=== PATIENT | female | born 1970 | race Caucasian/White ===

== ENCOUNTER → 2017-02-05 | Outpatient (CLI) | payer OTHER | END | disposition home or self-care (01) | LOC: LABWHC1 09:38 | PROVIDERS: ATTEND Psychiatry & Neurology Pain Medicine | DX: G35 Multiple sclerosis (principal); Z79.899 Other long term (current) drug therapy | CPT/HCPCS: 36415; 82306; 82607; 84207; 84439; 84443; 84481 ==

== ENCOUNTER → 2017-03-05 | Outpatient (CLI) | payer OTHER ==
[2017-03-05 11:26] LABS: Basophils % (A) 0 %; CH 31.9; CHCM 34.6; Eosinophils # (A) 0.1 k/uL (0-0.7); Eosinophils % (A) 3 %; HCT 38.3 % (34.0-46.0); HDW 2.65; HGB 13.1 gm/dL (11.4-16.0); Luc # (Auto) 0.15; Luc % (Auto) 4; Lymphocytes # (A) 0.3 k/uL (1.0-4.8); Lymphocytes % (A) 8 %; MCH 31.6 pg (25.0-35.0); MCHC 34.1 g/dL (31.0-37.0); MCV 92.6 fL (80.0-100.0); Mean Platelet Volume 10.1; Monocytes # (A) 0.4 k/uL (0-1.0); Monocytes % (A) 10 %; Neutrophils # (A) 3.1 k/uL (1.3-7.7); Neutrophils % (A) 76 %; RBC 4.13 m/uL (3.80-5.40); WBC (Perox) 4.31
[2017-03-05 11:59] LABS: ALT 47 U/L (9-52); AST 29 U/L (14-36); Alkaline Phosphatase 60 U/L (38-126); Anion Gap 8 mmol/L; Blood Urea Nitrogen 8 mg/dL (7-17); Calcium 9.6 mg/dL (8.4-10.2); Carbon Dioxide 28 mmol/L (22-30); Chloride 105 mmol/L (98-107); Glucose 85 mg/dL (74-99); Non-African American GFR(MDRD) >60 (>60 ml/min/1.73 sqM); Potassium 4.4 mmol/L (3.5-5.1); Sodium 141 mmol/L (137-145); Total Bilirubin 0.9 mg/dL (0.2-1.3); Total Protein 6.5 g/dL (6.3-8.2)
== END | disposition home or self-care (01) ==
LOC: LABWHC1 10:52
PROVIDERS: ATTEND Psychiatry & Neurology Pain Medicine
DX: G35 Multiple sclerosis (principal); Z79.899 Other long term (current) drug therapy
CPT/HCPCS: 36415; 80053; 85025

== ENCOUNTER → 2018-01-27 | Outpatient (CLI) | payer OTHER ==
[2018-01-27 11:12] LABS: ALT 42 U/L (9-52); AST 16 U/L (14-36); Albumin 4.1 g/dL (3.5-5.0); Alkaline Phosphatase 77 U/L (38-126); Anion Gap 11 mmol/L; Blood Urea Nitrogen 12 mg/dL (7-17); Carbon Dioxide 29 mmol/L (22-30); Chloride 102 mmol/L (98-107); Glucose 82 mg/dL (74-99); Sodium 142 mmol/L (137-145); Total Bilirubin 0.8 mg/dL (0.2-1.3); Total Protein 6.8 g/dL (6.3-8.2)
[2018-01-27 11:23] LABS: HCT 40.2 % (34.0-46.0); HGB 14.5 gm/dL (11.4-16.0); MCH 31.7 pg (25.0-35.0); MCHC 36.2 g/dL (31.0-37.0); MCV 87.6 fL (80.0-100.0); Mean Platelet Volume 10.2; Platelet Count 230 k/uL (150-450); RBC 4.59 m/uL (3.80-5.40); RDW 12.5 % (11.5-15.5); WBC 5.6 k/uL (3.8-10.6)
[2018-01-27 11:29] LABS: T4, Free (Free Thyroxine) 1.03 ng/dL (0.78-2.19)
[2018-01-27 12:14] LABS: Lymphocytes # (M) 0.11 k/uL (1.0-4.8); Monocytes # (M) 0.11 k/uL (0-1.0); Neutrophils # (M) 5.38 k/uL (1.3-7.7); Neutrophils % (M) 96 %; Nucleated Red Blood Cells 0 /100 WBC (0-0); Total Cells Counted 100
[2018-01-27 12:15] LABS: Anisocytosis (M) Present
[2018-01-27 16:08] LABS: Folate, Serum 10.7 ng/mL; Vitamin D 25 Hydroxy 62.8 ng/mL (30.0-100.0)
[2018-01-27 17:12] LABS: HIV AB P24 Non-Reactive (Non-Reactive); HIV P24 AG Non-Reactive (Non-Reactive)
[2018-01-27 17:56] LABS: Hepatitis A Antibody IgM Non-Reactive (Non-Reactive); Hepatitis B Core IgM Non-Reactive (Non-Reactive)
[2018-01-27 20:57] LABS: Hemoglobin A1C 4.7 % (4.0-6.0)
[2018-01-28 10:21] LABS: Vitamin B1 48 ug/L (38-122)
[2018-01-28 14:49] LABS: Vitamin B6 4 ug/L (5-50)
== END | disposition home or self-care (01) ==
LOC: LABWHC1 10:02
PROVIDERS: ATTEND Psychiatry & Neurology Neurology
DX: G35 Multiple sclerosis (principal)
CPT/HCPCS: 36415; 80053; 80074; 82306; 82607; 82746; 83036; 84207; 84425; 84439; 84443; 84481; 84591; 85025; 87390

== ENCOUNTER → 2018-02-03 | Outpatient (CLI) | payer OTHER ==
[2018-02-03 17:01] LABS: Anti-DNA, DS unit <1.0 IU/mL; Cyclic Citrullinated Pep IgG NEGATIVE (NEGATIVE); DNA Double-Stranded NEGATIVE (NEGATIVE); Scleroderma SC-70 Ab <0.2 AI
[2018-02-04 01:21] LABS: RNP <0.2 AI
== END | disposition home or self-care (01) ==
LOC: LABWHC1 10:18
PROVIDERS: ATTEND Psychiatry & Neurology Pain Medicine
DX: M35.9 Systemic involvement of connective tissue, unspecified (principal)
CPT/HCPCS: 36415; 83516; 86038; 86200; 86225; 86235

== ENCOUNTER → 2018-02-18 | Outpatient (CLI) | payer OTHER | END | disposition home or self-care (01) | LOC: RADMRIMAIN 10:52 | PROVIDERS: ATTEND Psychiatry & Neurology Pain Medicine | DX: Z53.9 Procedure and treatment not carried out, unspecified reason (principal) ==

== ENCOUNTER → 2018-02-19 | Outpatient (CLI) | payer OTHER ==
--- NOTE | 2018-02-20 07:55 | MR ---
MRI CERVICAL SPINE: MRI THORACIC SPINE: CLINICAL HISTORY: Multiple sclerosis relapse with leg weakness TECHNIQUE: Multiplanar, multisequence imaging of the cervical and thoracic spine are performed withou t and with IV contrast, 7.5 cc of gadolinium was given intravenously. Demyelinating disease protocol. COMPARISON: MRI cervical spine October 21, 2014. MRI thoracic spine July 21, 2015. FINDINGS: C-SPINE: Sagittal images of the cervical spine show the craniocervical junction to remain within normal limits . The cervical and upper thoracic spinal cord remains normal in course, caliber, and signal. Verteb ral alignment is stable and satisfactory. The vertebral body heights are normal. There is redemonstr ation of mild to moderate disc space narrowing with posterior disc herniation C5-C6 level effacing an terior thecal sac. There is additional posterior disc herniation effacing anterior thecal sac at C6-C 7 level on sagittal images. The bone marrow signal intensity is within normal limits. No suspicious p ostcontrast enhancement is seen. Axial images show the C2-C3 and C3-C4 levels to appear within normal limits. Axial images at C4-C5 level shows small central disc protrusion mildly effacing anterior thecal sac o n axial image 30, bilateral neural foramina are patent. Axial images at C5-C6 level redemonstrated broad-based left paracentral disc protrusion effacing ante rolateral thecal sac and causing mild left greater than right bilateral neural foraminal narrowing. N o significant change from prior study is seen. Axial images at C6-C7 level shows central disc protrusion effacing anterior thecal sac, bilateral natalie ral foramina are patent. No significant change from prior. Axial images at C7-T1 level are felt to remain within normal limits. Questionable T2 hyperintense focus posterior left C4 level near axial image 33 is not significantly c hanged from prior. No definitive new areas of involvement are identified. IMPRESSION: Possible left posterior C4 T2 hyperintense lesion not significant change from prior. No n ew or enhancing lesions are seen. Multilevel degenerative changes redemonstrated most prominent C5-C6 level without significant change from prior. T-SPINE: FINDINGS: Spinal cord shows normal course, caliber, and signal as it courses the thoracic spine. Elaine tebral body heights and alignment are satisfactory. Disc space heights are fairly well-maintained. N o suspicious posterior disc herniations are seen. Bone marrow signal intensity is maintained. No susp icious enhancement is noted. Review of the axial images shows no significant spinal canal stenosis or neural foraminal narrowing a t any thoracic level. There is redemonstration of round 5 mm T1 and T2 hyperintense lesion favoring proteinaceous cyst left kidney posterior lateral aspect axial image 3 stable from prior. A few small simple appearing cysts redemonstrated scattered throughout the visualized liver. Visualized thorax and upper abdomen otherwi se are unremarkable. IMPRESSION: No evidence of demyelinating disease involvement in the thoracic spinal cord. No signific ant change from prior MRI.
== END | disposition home or self-care (01) ==
LOC: RADMRIMAIN 11:02
PROVIDERS: ATTEND Psychiatry & Neurology Neurology
DX: M47.812 Spondylosis without myelopathy or radiculopathy, cervical region (principal); G35 Multiple sclerosis; Z88.8 Allergy status to other drugs, medicaments and biological substances
CPT/HCPCS: 72156; 72157; A9581

== ENCOUNTER → 2018-03-04 | Outpatient (CLI) | payer OTHER ==
--- NOTE | 2018-03-04 20:57 | MR ---
EXAMINATION TYPE: MR brain wo/w con DATE OF EXAM: 03/04/2018 COMPARISON: 07/10/2016 HISTORY: MS, Left side weakness and numbness CONTRAST: Performed utilizing 7 mL intravenous Gadavist gadolinium contrast. TECHNIQUE: Multiplanar, multisequence imaging of the brain is performed on a 3.0 Ambreen magnet. Demye linating disease protocol with additional Sagittal Flair sequence is performed. Study is performed wi thin 24 hours of arrival to the hospital. FINDINGS: There is thinning of the corpus callosum. Multiple white matter plaques and ischemic areas are perpendicular to the corpus callosum which can be suggestive for although not diagnostic of multi ple sclerosis. T2 White Matter Lesions Present : Yes Approximate Number of Lesions: Multiple bilateral approaching confluent. Locations Identified : Pericallosal periventricular subcortical, callosal white matter change may be present. Cerebellar white matter changes are evident greater on the left. Size of Largest Lesion(s): 1. 1.1 x 1.2 x 1.8 cm. Location: Left centrum semiovale Sequence 501 Image 22 (axial) and Sequence 60 1 Image 15 (sagittal). This has enlarged from the prior measurements of 1.0 x 1.0 x 0.9 cm. 2. 0.7 x 0.7 x 0.5 cm. Location: Left proximal temporal lobe subcortical white matter Sequence 501 Image 14 (axial) and Sequence 601 Image 8 (sagittal). This previously measured 0.7 x 0.8 x 0.3 cm. Enhancing Lesion(s) Present: No Change from Prior: Similar distribution and appearance. Some focal lesions have increased in size suc h as the left cerebellum. Diffusion-weighted imaging is performed. No abnormal hyperintensity is present to suggest an acute i ntracranial infarct or acute ischemic change. Ventricles and sulci are prominent for the patient age. There are no abnormal extra-axial fluid collections. The craniocervical junction appears within norm al limits. The dural venous sinuses appear patent. No abnormal enhancement is present on post contrast images. . The visualized sinuses are clear. Visu alized orbits are unremarkable. IMPRESSION: 1. There appears to be subtle progression of extensive white matter changes suggestive for worsening multiple sclerosis plaques.
== END | disposition home or self-care (01) ==
LOC: RADMRIMAIN 11:34
PROVIDERS: ATTEND Psychiatry & Neurology Neurology
DX: G35 Multiple sclerosis (principal)
CPT/HCPCS: 70553; A9581

== ENCOUNTER → 2018-03-12 | Outpatient (CLI) | payer OTHER ==
[2018-03-12 17:45] LABS: Hepatitis B Core IgM Non-Reactive (Non-Reactive); Hepatitis B Surface AB- Quant 3.5 mIU/mL
== END | disposition home or self-care (01) ==
LOC: LABWHC1 10:05
PROVIDERS: ATTEND Psychiatry & Neurology Neurology
DX: G35 Multiple sclerosis (principal); Z51.81 Encounter for therapeutic drug level monitoring
CPT/HCPCS: 36415; 86704; 86705; 86706

== ENCOUNTER → 2018-04-15 | Outpatient (CLI) | payer OTHER ==
[2018-04-15 10:41] LABS: HCT 41.2 % (34.0-46.0); MCH 31.1 pg (25.0-35.0); MCV 91.3 fL (80.0-100.0); Mean Platelet Volume 10.5; Platelet Count 203 k/uL (150-450); RBC 4.51 m/uL (3.80-5.40); RDW 13.3 % (11.5-15.5); WBC 3.1 k/uL (3.8-10.6)
[2018-04-15 12:53] LABS: Anisocytosis (M) Present; Eosinophils # (M) 0.03 k/uL (0-0.7); Lymphocytes # (M) 0.09 k/uL (1.0-4.8); Monocytes # (M) 0.16 k/uL (0-1.0); Neutrophils # (M) 2.82 k/uL (1.3-7.7); Neutrophils % (M) 91 %; Nucleated Red Blood Cells 0 /100 WBC (0-0); Total Cells Counted 100
== END | disposition home or self-care (01) ==
LOC: LABWHC1 09:22
PROVIDERS: ATTEND Psychiatry & Neurology Neurology
DX: G35 Multiple sclerosis (principal)
CPT/HCPCS: 36415; 85025

== ENCOUNTER → 2018-05-15 | Outpatient (CLI) | payer OTHER ==
[2018-05-15 14:10] LABS: Basophils % (A) 1 %; Eosinophils # (A) 0.3 k/uL (0-0.7); Eosinophils % (A) 4 %; HCT 44.7 % (34.0-46.0); HGB 15.2 gm/dL (11.4-16.0); Lymphocytes # (A) 0.7 k/uL (1.0-4.8); Lymphocytes % (A) 11 %; MCH 31.6 pg (25.0-35.0); Mean Platelet Volume 8.3; Monocytes # (A) 0.7 k/uL (0-1.0); Monocytes % (A) 10 %; Neutrophils # (A) 4.7 k/uL (1.3-7.7); Neutrophils % (A) 71 %; Platelet Count 222 k/uL (150-450); RDW 13.1 % (11.5-15.5); WBC 6.6 k/uL (3.8-10.6)
== END | disposition home or self-care (01) ==
LOC: LABWHC1 13:41
PROVIDERS: ATTEND Psychiatry & Neurology Pain Medicine
DX: G35 Multiple sclerosis (principal)
CPT/HCPCS: 36415; 85025

== ENCOUNTER 2018-11-21 15:02 | Emergency (ER) | payer OTHER ==
[2018-11-21 15:34] VITALS: BP 138/82; PULSE 77; RESP 18; TEMP 97.9
[2018-11-21] MEDS ORDERED: MORPHINE SULFATE 4 MG/ML SYRINGE IM STA (16:26)
[2018-11-21] MEDS ORDERED: AMOXIC-POT CLAV 875-125MG 1 EACH TAB PO STA (16:59)
[2018-11-21] MEDS ORDERED: ACET/COD 300 MG/30 MG STARTER PACK 6 TAB BTL PO STA (17:11)
--- NOTE | 2018-11-21 17:40 | ED ---
General Adult HPI - General Chief complaint: Dental/Oral Stated complaint: Facial swelling Source: patient, RN notes reviewed, old records reviewed Mode of arrival: wheelchair Limitations: no limitations - History of Present Illness Initial comments: 48 old female patient past medical history of poor dentition, multiple sclerosis presents to ED with 3 days of dental pain. Patient states that she does have a dentist that she follows up with. Patient reports that she has pain in her left lower jaw for approximately 3 days. Patient has had her teeth removed in that region approximately 18 months ago in preparation of possible implants. Patient is currently in process of obtaining dental surgeon to perform implants. Patient denies any other complaints. Patient denies fever chills, nausea vomiting diarrhea, chest pain, shortness breath, abdominal pain. Patient denies any discharge. Patient has full active range of motion of jaw. Systemic: Pt denies fatigue, myalgia, fever/chills, rash. Pt denies weakness, night sweats, weight loss. Neuro: Pt denies headache, visual disturbances, syncope or pre-syncope. HEENT: Pt denies ocular discharge or irritation, otalgia, rhinorrhea, pharyngitis or notable lymphadenopathy. Cardiopulmonary: Pt denies chest pain, SOB, heart palpitations, dyspnea on exertion. Abdominal/GI: Pt denies abdominal pain, n/v/d. : Pt denies dysuria, burning w/ urination, frequency/urgency. Denies new onset urinary or bowel incontinence. MSK: Pt denies myalgia, loss of strength or function in extremities. Neuro: Pt denies new onset weakness, paresthesias. - Related Data Home Medications Medication Instructions Recorded Confirmed Cholecalciferol (Vitamin D3) 3,000 units PO DAILY 07/06/15 09/07/18 [Vitamin D] Dalfampridine [Ampyra] 10 mg PO BID 07/06/15 09/07/18 Lisinopril 10 mg PO DAILY 07/06/15 09/07/18 Previous Rx's Medication Instructions Recorded Amoxic-Pot Clav 875-125Mg 1 tab PO Q12HR 10 Days #20 tablet 11/21/18 [Augmentin 875-125] Allergies Allergy/AdvReac Type Severity Reaction Status Date / Time glatiramer acetate Allergy Severe Unknown Verified 11/21/18 15:34 [From Copaxone] interferon beta-1a Allergy Severe Unknown Verified 11/21/18 15:34 [From Avonex] meperidine HCl [From Demerol] Allergy Intermediate Rash/Hives Verified 11/21/18 15:34 albumin human AdvReac Severe Unknown Verified 11/21/18 15:34 [From Rebif (with albumin)] Review of Systems ROS Statement: Those systems with pertinent positive or pertinent negative responses have been documented in the HPI. ROS Other: All systems not noted in ROS Statement are negative. Past Medical History Additional Past Medical History / Comment(s): MS History of Any Multi-Drug Resistant Organisms: None Reported Past Surgical History: Hysterectomy, Orthopedic Surgery Additional Past Surgical History / Comment(s): oral carpel tunnel. BACLOFEN PUMP IN ABDOMEN. Additional Past Anesthesia/Blood Transfusion Reaction / Comment(s): MOTHER NOTED WITH "VIOLENT NAUSEA AND VOMITING PRIOR TO SURGERIES. Past Psychological History: No Psychological Hx Reported Smoking Status: Former smoker Past Alcohol Use History: Rare Past Drug Use History: None Reported General Exam - General Exam Comments Initial Comments: Constitutional: NAD, AOX3, Pt has pleasant affect. HEENT: NC/AT, trachea midline, neck supple, no lymphadenopathy. Posterior pharynx non erythematous, without exudates. External ears appear normal, without discharge. Mucous membranes moist. Eyes PERRLA, EOM intact. There is no scleral icterus. No pallor noted. Dental exam revealed multiple teeth removed in upper and lower jaw. Pt area of complaint is in left lowere portion of jaw, region of teeth 17-20. Area is mildly tender to palpation, mildly erythematous. No discharge or abscess noted. Pt has full ROM of jaw, no trismus. Cardiopulmonary: RRR, no murmurs, rubs or gallops, no JVD noted. Lungs CTAB in anterior and posterior rao. No peripheral edema. Abdominal exam: Abdomen soft and non-distended. Abdomen non-tender to palpation in all 4 quadrants. Bowel sounds active in LLQ. No hepatosplenomegaly. No ecchymosis Neuro: CN II-XII grossly intact. No nuchal rigidity. Full active ROM of neck. MSK: No posterior calf tenderness bilaterally, homans sign negative bilaterally. Posterior tibialis and radial pulse +2 bilaterally. Sensation intact in upper and lower extremities. Full active ROM in upper and lower extremities, 5/5 stregnth. Limitations: no limitations Course Vital Signs 11/21/18 15:30 Temperature 97.9 F Pulse Rate 77 Respiratory 18 Rate Blood Pressure 138/82 O2 Sat by Pulse 100 Oximetry Medical Decision Making - Medical Decision Making 48 old female patient past medical history of poor dentition, multiple sclerosis presents to ED with 3 days of dental pain. Patient states that she does have a dentist that she follows up with. Patient reports that she has pain in her left lower jaw for approximately 3 days. Patient has had her teeth removed in that region approximately 18 months ago in preparation of possible implants. Patient denies any other complaints. Pt VSS, afebrile. Physical exam displayed: Dental exam revealed multiple teeth removed in upper and lower jaw. Pt area of complaint is in left lowere portion of jaw, region of teeth 17- 20. Area is mildly tender to palpation, mildly erythematous. No discharge or abscess noted. Pt has full ROM of jaw, no trismus. Patient pain well- controlled with morphine ED. Patient given dose of Augmentin ED. Patient prescribed tylenol 3 starter pack for outpt pain as needed. Patient prescribed Augmentin for outpatient treatment. Patient to follow up with PCP and dentist tomorrow for futher evaluation. Patient to return to ED if condition worsens, or if any new signs or symptoms develop. Case discussed in depth with Dr. Sands. Disposition Clinical Impression: Pain, dental Disposition: HOME SELF-CARE Condition: Good Instructions: Toothache (ED) Additional Instructions: Patient to adhere to previously discussed treatment plan and will take medication(s) as directed. Patient to follow up with PCP in 1-2 days. Patient to return to ED if symptoms do not improve. Prescriptions: Amoxic-Pot Clav 875-125Mg [Augmentin 875-125] 1 tab PO Q12HR 10 Days #20 tablet Is patient prescribed a controlled substance at d/c from ED?: No Referrals: Karen Monroe MD [Primary Care Provider] - 1-2 days
== END 2018-11-21 17:45 | disposition home or self-care (01) ==
LOC: EC 15:02
DX: K08.89 Other specified disorders of teeth and supporting structures (principal); G35 Multiple sclerosis; Z79.899 Other long term (current) drug therapy; Z88.8 Allergy status to other drugs, medicaments and biological substances; Z88.5 Allergy status to narcotic agent; Z98.818 Other dental procedure status; Z87.891 Personal history of nicotine dependence
CPT/HCPCS: 99283; 96372; J2270

== ENCOUNTER → 2019-12-17 | Outpatient (CLI) | payer OTHER ==
[2019-12-17 11:52] LABS: HGB 13.8 gm/dL (11.4-16.0); MCH 30.7 pg (25.0-35.0); MCHC 32.9 g/dL (31.0-37.0); MCV 93.3 fL (80.0-100.0); Mean Platelet Volume 11.8; RDW 12.8 % (11.5-15.5); WBC 4.4 k/uL (3.8-10.6)
[2019-12-17 12:31] LABS: Eosinophils # (M) 0.31 k/uL (0-0.7); Lymphocytes # (M) 0.75 k/uL (1.0-4.8); Neutrophils # (M) 2.95 k/uL (1.3-7.7); Neutrophils % (M) 67 %; Nucleated Red Blood Cells 0 /100 WBC (0-0); Total Cells Counted 100
[2019-12-17 12:33] LABS: Large Platelets Present
[2019-12-17 12:45] LABS: Platelet Count 238 k/uL (150-450)
[2019-12-17 16:24] LABS: Hepatitis B Core IgM Non-Reactive (Non-Reactive); Hepatitis B Surface AB- Quant 3.5 mIU/mL; Hepatitis B Surface Antibody Non-Reactive (Non-Reactive); Hepatitis B Surface Antigen Non-Reactive (Non-Reactive)
[2019-12-17 17:16] LABS: African American GFR (CKD) 119.6 (60.0-200.0); Albumin 4.4 g/dL (3.80-4.90); Albumin/Globulin Ratio 2.75 (1.60-3.17); Anion Gap 6.9 mmol/L (4.00-12.00); BUN/Creat Ratio 14.29 Ratio (12.00-20.00); Calcium 9.7 mg/dL (8.7-10.3); Carbon Dioxide 28.1 mmol/L (21.6-31.8); Globulin 1.6 g/dL (1.6-3.3); Non-African American GFR(CKD) 103.2 (60.0-200.0); Potassium 4.4 mmol/L (3.5-5.5); Total Bilirubin 0.5 mg/dL (0.2-1.2)
[2019-12-17 18:08] LABS: Folate, Serum 13.4 ng/mL
[2019-12-17 18:26] LABS: Hemoglobin A1C 4.5 % (4.0-6.0)
[2019-12-20 03:25] LABS: Varicella IgM Antibody 0.56 INDEX (<=0.90)
== END | disposition home or self-care (01) ==
LOC: LABWHC1 09:59
PROVIDERS: ATTEND Psychiatry & Neurology Pain Medicine
DX: G35 Multiple sclerosis (principal)
CPT/HCPCS: 36415; 80053; 82306; 82607; 82746; 83036; 83540; 84207; 84425; 84439; 84443; 84481; 84591; 85025; 86704; 86705; 86706; 86787; 87340

== ENCOUNTER → 2020-12-20 | Outpatient (CLI) | payer OTHER ==
[2020-12-20 19:17] LABS: Basophils # (A) 0.07 X 10*3/uL (0.00-0.10); Basophils % (A) 1.2 %; Eosinophils # (A) 0.21 X 10*3/uL (0.04-0.35); Eosinophils % (A) 3.6 %; HCT 38.5 % (37.2-46.3); Lymphocytes # (A) 1.04 X 10*3/uL (0.90-5.00); MCHC 33.8 g/dL (32.0-37.0); MCV 91.9 fL (80.0-97.0); Mean Platelet Volume 12.5 fL (9.5-12.2); Monocytes # (A) 0.41 X 10*3/uL (0.20-1.00); Monocytes % (A) 7.1 %; Neutrophils # (A) 4.05 X 10*3/uL (1.80-7.70); Neutrophils % (A) 69.9 %; Platelet Count 324 X 10*3/uL (140-440); RBC 4.19 X 10*6/uL (4.10-5.20); RDW 12.3 % (11.5-14.5); WBC 5.79 X 10*3/uL (4.50-10.00)
[2020-12-20 19:46] LABS: Albumin 4.9 g/dL (3.80-4.90); Albumin/Globulin Ratio 3.06 (1.60-3.17); Anion Gap 6.6 mmol/L (4.00-12.00); BUN/Creat Ratio 16.25 Ratio (12.00-20.00); Calcium 10.3 mg/dL (8.7-10.3); Carbon Dioxide 29.4 mmol/L (21.6-31.8); Globulin 1.6 g/dL (1.6-3.3); Non-African American GFR(CKD) 87.2 (60.0-200.0); Potassium 4.8 mmol/L (3.5-5.5); Total Bilirubin 0.5 mg/dL (0.2-1.2); Total Protein 6.5 g/dL (6.2-8.2)
[2020-12-20 19:54] LABS: T4, Free (Free Thyroxine) 0.9 ng/dL (0.80-1.80)
[2020-12-20 19:57] LABS: Folate, Serum 6.9 ng/mL
[2020-12-20 22:39] LABS: Hemoglobin A1C 4.9 % (4.0-6.0)
[2020-12-20 22:47] LABS: Hepatitis B Core IgM Non-Reactive (Non-Reactive); Hepatitis B Surface AB- Quant 3.5 mIU/mL; Hepatitis B Surface Antibody Non-Reactive (Non-Reactive); Hepatitis B Surface Antigen Non-Reactive (Non-Reactive)
[2020-12-22 06:30] LABS: Varicella IgM Antibody 0.71 INDEX (<=0.90)
[2020-12-22 11:00] LABS: HIV 2 AB Non-Reactive (Non-Reactive); HIV AB P24 Non-Reactive (Non-Reactive); HIV P24 AG Non-Reactive (Non-Reactive)
== END | disposition home or self-care (01) ==
LOC: LABWHC1 10:48
PROVIDERS: ATTEND Psychiatry & Neurology Pain Medicine
DX: G35 Multiple sclerosis (principal)
CPT/HCPCS: 36415; 80053; 82306; 82607; 82746; 83036; 84207; 84425; 84439; 84443; 84481; 84591; 85025; 86704; 86705; 86706; 86787; 87340; 87390

== ENCOUNTER → 2021-01-24 | Outpatient (CLI) | payer OTHER ==
--- NOTE | 2021-01-24 12:26 | US ---
EXAMINATION TYPE: US thyroid st tissue head/neck DATE OF EXAM: 01/24/2021 COMPARISON: NONE CLINICAL HISTORY: K76.89 diseases of liver ; E04.1 THYROID NODULE. GLAND SIZE: Right Lobe: 4.2 x 1.8 x 1.7 cm Overall Parenchyma: homogenous Left Lobe: 3.9 x 1.6 x 1.5 cm Overall Parenchyma: homogeneous Isthmus Thickness: 0.3 cm NODULES RIGHT: # of nodules measured on right: 1 1. 1.1 X 0.7 x 1.2 cm, lower lateral, solid or almost completely solid, hypoechoic nodule, which is wider than tall, with smooth margins, without echogenic foci. Prior size: no prior LEFT: # of nodules measured on left: 0 ISTHMUS: # of nodules measured in the isthmus: 0 Bilateral neck scanned, no evidence of lymphadenopathy. Nodule as described. IMPRESSION: Moderately suspicious nodule inferior right lobe thyroid. Follow-up ultrasound is recommended 1 year 2017 ACR TI-RADS LEVEL: TR-RADS 4 - Moderately Suspicious: Follow if > 1 cm, FNA if > 1.5 cm *Highest TI-RADS level nodule reported
--- NOTE | 2021-01-24 12:49 | US ---
EXAMINATION TYPE: US liver DATE OF EXAM: 01/24/2021 COMPARISON: NONE CLINICAL HISTORY: K76.89 diseases of liver ; E04.1 THYROID NODULE. EXAM MEASUREMENTS: Liver Length: 13.9 cm Gallbladder Wall: 0.3 cm CBD: 0.4 cm Right Kidney: 10.2 x 4.2 x 4.6 cm Technically difficult exam due to extensive midline bowel gas. Pancreas: not well visualized due to midline bowel gas Liver: difficult to penetrate Gallbladder: wnl Evidence for sonographic Valdes's sign: No CBD: wnl Right Kidney: No hydronephrosis or masses seen IMPRESSION: 1. Examination is somewhat limited due to bowel gas. 2. No suspicious acute changes
== END ==
LOC: RADUSWWP 06:57
PROVIDERS: ATTEND Psychiatry & Neurology Neurology
DX: E04.1 Nontoxic single thyroid nodule (principal); K76.89 Other specified diseases of liver
CPT/HCPCS: 76536; 76705

== ENCOUNTER → 2021-02-21 | Outpatient (CLI) | payer OTHER ==
[2021-02-21 18:51] LABS: Basophils # (A) 0.06 X 10*3/uL (0.00-0.10); Basophils % (A) 0.9 %; Eosinophils # (A) 0.34 X 10*3/uL (0.04-0.35); HCT 40.8 % (37.2-46.3); Lymphocytes # (A) 1.17 X 10*3/uL (0.90-5.00); Lymphocytes % (A) 17.3 %; MCH 29.8 pg (27.0-32.0); MCHC 31.9 g/dL (32.0-37.0); MCV 93.6 fL (80.0-97.0); Mean Platelet Volume 12.9 fL (9.5-12.2); Monocytes # (A) 0.39 X 10*3/uL (0.20-1.00); Monocytes % (A) 5.8 %; Neutrophils # (A) 4.76 X 10*3/uL (1.80-7.70); Neutrophils % (A) 70.6 %; Platelet Count 357 X 10*3/uL (140-440); RBC 4.36 X 10*6/uL (4.10-5.20); RDW 12.8 % (11.5-14.5); Reticulocyte % 1.69 % (0.10-1.80); WBC 6.75 X 10*3/uL (4.50-10.00)
[2021-02-21 21:02] LABS: Hemoglobin A1C 4.9 % (4.0-6.0)
[2021-02-21 23:17] LABS: Luteinizing Hormone 44.2 mIU/mL
[2021-02-21 23:19] LABS: Thyroid Peroxidase Antibodies <28.0 U/mL (0.0-60.0)
[2021-02-21 23:28] LABS: Ferritin 21.6 ng/mL (10.0-291.0); Follicle Stimulating Hormone 70.5 mIU/mL
[2021-02-22 00:43] LABS: % Iron Saturation 3.56 (12.00-45.00); ALT 27 U/L (8-44); AST 23 U/L (13-35); African American GFR (CKD) 87.6 (60.0-200.0); Albumin/Globulin Ratio 2.78 (1.60-3.17); Alkaline Phosphatase 76 U/L (41-126); BUN/Creat Ratio 18.89 Ratio (12.00-20.00); C Reactive Protein <0.4 mg/dL (0.0-0.8); Calcium 10.4 mg/dL (8.7-10.3); Carbon Dioxide 22.9 mmol/L (21.6-31.8); Chloride 106 mmol/L (96-109); Globulin 1.8 g/dL (1.6-3.3); Glucose 122 mg/dL (70-110); Iron 16 ug/dL (50-170); Non-African American GFR(CKD) 75.6 (60.0-200.0); Potassium 4.5 mmol/L (3.5-5.5); Sodium 143 mmol/L (135-145); Total Bilirubin 0.3 mg/dL (0.3-1.2); Total Iron Binding Capacity 450 ug/dL (228-460); Total Protein 6.8 g/dL (6.2-8.2)
== END | disposition home or self-care (01) ==
LOC: LABWHC1 12:49
PROVIDERS: ATTEND Psychiatry & Neurology Pain Medicine
DX: R53.82 Chronic fatigue, unspecified (principal)
CPT/HCPCS: 36415; 80053; 82306; 82533; 82607; 82626; 82668; 82728; 83001; 83002; 83003; 83036; 83540; 83550; 84207; 84305; 84439; 84443; 84466; 84481; 85025; 85045; 86140; 86376; 86800

== ENCOUNTER → 2021-08-16 | Outpatient (CLI) | payer OTHER ==
[2021-08-16 15:47] LABS: HCT 43.1 % (37.2-46.3); HGB 13.9 g/dL (12.0-15.0); MCH 30.4 pg (27.0-32.0); MCHC 32.3 g/dL (32.0-37.0); MCV 94.3 fL (80.0-97.0); Mean Platelet Volume 13.8 fL (9.5-12.2); Platelet Count 256 X 10*3/uL (140-440); RBC 4.57 X 10*6/uL (4.10-5.20); RDW 12.5 % (11.5-14.5); WBC 6.82 X 10*3/uL (4.50-10.00)
[2021-08-16 21:07] LABS: Calcium 10.5 mg/dL (8.7-10.3); Folate, Serum 11.1 ng/mL (4.40-31.00); T4, Free (Free Thyroxine) 0.88 ng/dL (0.800-1.800)
[2021-08-16 22:37] LABS: Hepatitis B Core IgM Nonreactive (Nonreactive); Hepatitis B Surface Antibody NonReactive (Nonreactive); Hepatitis B Surface Antigen Nonreactive (Nonreactive)
[2021-08-17 10:39] LABS: V. zoster Source Blood - Plasma
== END | disposition home or self-care (01) ==
LOC: LABWHC1 09:48
PROVIDERS: ATTEND Psychiatry & Neurology Neurology
DX: G35 Multiple sclerosis (principal); R26.9 Unspecified abnormalities of gait and mobility
CPT/HCPCS: 36415; 82306; 82310; 82607; 82746; 83036; 84207; 84425; 84439; 84443; 84591; 85027; 86705; 86706; 87340; 87798

== ENCOUNTER → 2021-10-10 | Outpatient (CLI) | payer OTHER ==
[2021-10-11 00:07] LABS: Reticulocyte % 2.03 % (0.10-1.80)
[2021-10-11 02:25] LABS: % Iron Saturation 25.17 (12.00-45.00); ALT 42 U/L (8-44); AST 29 U/L (13-35); African American GFR (CKD) 122.1 (60.0-200.0); Albumin 4.7 g/dL (3.8-4.9); Albumin/Globulin Ratio 2.42 (1.60-3.17); Alkaline Phosphatase 93 U/L (41-126); BUN/Creat Ratio 38.95 Ratio (12.00-20.00); Blood Urea Nitrogen 24.5 mg/dL (9.0-27.0); Calcium 10.2 mg/dL (8.7-10.3); Carbon Dioxide 26.8 mmol/L (20.0-27.5); Chloride 105 mmol/L (96-109); Glucose 103 mg/dL (70-110); Iron 111 ug/dL (50-170); Non-African American GFR(CKD) 105.4 (60.0-200.0); Potassium 3.7 mmol/L (3.5-5.5); Sodium 145 mmol/L (135-145); Total Iron Binding Capacity 441 ug/dL (228-460); Total Protein 6.7 g/dL (6.2-8.2)
[2021-10-11 03:37] LABS: C Reactive Protein <0.30 mg/dL (0.00-0.80)
== END | disposition home or self-care (01) ==
LOC: LABWHC1 14:48
PROVIDERS: ATTEND Psychiatry & Neurology Pain Medicine
DX: Z51.81 Encounter for therapeutic drug level monitoring (principal); G35 Multiple sclerosis
CPT/HCPCS: 36415; 80053; 82607; 82728; 82746; 83540; 83550; 85045; 85652; 86140; 93005

== ENCOUNTER 2021-11-27 08:22 | Observation (INO) | payer OTHER ==
[2021-11-27 08:27] LABS: Glucose,Whole Blood 99 mg/dL (75-99)
[2021-11-27] MEDS ORDERED: SODIUM CHLORIDE 0.9% 1,000 ML IV STA (08:28)
--- NOTE | 2021-11-27 08:31 | ED ---
General Adult HPI - General Chief complaint: Neuro Symptoms/Deficit Stated complaint: stroke symptoms Time Seen by Provider: 11/27/21 08:25 Source: EMS Mode of arrival: EMS Limitations: altered mental status, physical limitation - History of Present Illness Initial comments: Dictation was produced using [employer] dictation software. please excuse any grammatical, word or spelling errors. Chief Complaint: 51-year-old female past medical history multiple sclerosis brought in by EMS for concerns of seizure versus stroke History of Present Illness: Patient is a 51-year-old female she has past medical history multiple sclerosis. Patient unsure why she is in the emergency department today. History of present is obtained from EMS. EMS was called for witnessed tonic-clonic like activity. Her last known normal was around 7:20 AM. Patient lives with family. She was noticed to have tonic-clonic like activity. EMS was called for that reason. family was concerned that she was having a cardiac event and even perform CPR on the patient.There is concern of seizure. Upon EMS arrival patient was not having any tonic-clonic activity. She is in wheelchair that time did not fall. EMS states that upon initial arrival patient was aphasic not really following commands and had left-sided facial droop. She allegedly had high blood pressure. EMS was concerned of CVA and brought patient to the emergency department as a priority 1. Patient denies any complaints at this time. Patient states that she walks however he was reports that she is confined to a wheelchair. Patient has history multiple sclerosis patient does not taken and evaluation medications. She takes multiple sclerosis medications. According to EMS patient has been feeling ill for the last 2 days. The ROS documented in this emergency department record has been reviewed and confirmed by me. Those systems with pertinent positive or negative responses h ave been documented in the HPI. All other systems are other negative and/or noncontributory. PHYSICAL EXAM: General Impression: Alert and oriented x3, not in acute distress HEENT: Normocephalic atraumatic, extra-ocular movements intact, pupils equal and reactive to light bilaterally, mucous membranes moist. Cardiovascular: Heart regular rate and rhythm Chest: Able to complete full sentences, no retractions, no tachypnea Abdomen: abdomen soft, non-tender, non-distended, no organomegaly Musculoskeletal: Pulses present and equal in all extremities, no peripheral edema Motor: no focal deficits noted Neurological: CN II-XII grossly intact, no focal motor or sensory deficits noted, stiff bilateral lower extremities Skin: Intact with no visualized rashes Psych: Normal affect and mood ED course: 51-year-old female past medical history of multiple sclerosis presents emergency department for clinical concern of TIA versus seizure versus syncopal episode. Vital signs upon arrival shows heart rate of 104, rest of vital signs within acceptable limits. More history obtained from patient's daughter and mother at the bedside. Daughter reports that she witnessed the event. States she became significantly nauseated when all of a sudden she raises one of her arms which started shaking convulsing. She states that her eyes rolled behind her head. This time contact activity lasted for 1-2 minutes. After the tonic-clonic activity stopped patient was having sonorous respirations for several minutes. They're at the bedside reports that she looks significantly better though still confused. Patient is confined to wheelchair does not walk chronically. Her multiple sclerosis doctor is Dr. Banerjee. EKG interpretation: Ventricular rate 91, normal sinus rhythm, NC interval 174, QRS 66, QTC 464. No NC prolongation, no QTC prolongation, no ST or T-wave changes noted. EKG compared to 10/10/2021 showing no changes. Overall, this EKG is unremarkable Laboratory evaluation obtained. CBC unremarkable. Coag panel is negative. Metabolic panel is normal. Lactic acid was 2.5. Patient is covered positive. Computed tomography scan of the brain shows patchy periventricular white matter hypodensity consistent with multiple sclerosis. Chest x-ray shows no acute processes. Patient's COVID-19 test is positive. More history was obtained from family regarding patient's Covid vaccination status. She is not vaccinated. According to daughter and mother vaccine was not recommended by neurologist due to concerns of immune reaction to the vaccine. Edwardo antibody infusion was discussed with family they're agreeable. Patient's been symptomatic for not more than 3 days. She started having a phlegm cough since then. Patient meets criteria. Monoclonal antibody infusion ordered. Case is discussed with neurology who ordered an EEG and evaluated patient at the bedside. Patient be admitted to Dr. Elias. - Related Data Home Medications Medication Instructions Recorded Confirmed Dalfampridine [Ampyra] 10 mg PO BID 07/06/15 11/27/21 lisinopriL [Lisinopril] 10 mg PO DAILY 07/06/15 11/27/21 Baclofen 10 tab PO QID PRN 06/07/21 11/27/21 Omeprazole 20 mg PO BID 06/07/21 11/27/21 PARoxetine HCL [Paxil] 20 mg PO DAILY 06/07/21 11/27/21 Baclofen Pump 1 dose INTRATHECA CONTINUOUS 11/27/21 11/27/21 Cholecalciferol [Vitamin D3 (25 75 mcg PO DAILY 11/27/21 11/27/21 Mcg = 1000 Iu)] Ferrous Sulfate [Feosol] 325 mg PO TID 11/27/21 11/27/21 Allergies Allergy/AdvReac Type Severity Reaction Status Date / Time glatiramer acetate Allergy Severe Unknown Verified 11/27/21 09:36 [From Copaxone] interferon beta-1a Allergy Severe Unknown Verified 11/27/21 09:36 [From Avonex] meperidine HCl [From Demerol] Allergy Intermediate Rash/Hives Verified 11/27/21 09:36 albumin human AdvReac Severe Unknown Verified 11/27/21 09:36 [From Rebif (with albumin)] Review of Systems ROS Statement: Those systems with pertinent positive or pertinent negative responses have been documented in the HPI. ROS Other: All systems not noted in ROS Statement are negative. Past Medical History Past Medical History: CVA/TIA, Seizure Disorder Additional Past Medical History / Comment(s): MS History of Any Multi-Drug Resistant Organisms: None Reported Past Surgical History: Hysterectomy, Orthopedic Surgery Additional Past Surgical History / Comment(s): oral carpel tunnel. BACLOFEN PUMP IN ABDOMEN. Additional Past Anesthesia/Blood Transfusion Reaction / Comment(s): MOTHER NOTED WITH "VIOLENT NAUSEA AND VOMITING PRIOR TO SURGERIES. Past Psychological History: No Psychological Hx Reported Smoking Status: Never smoker Past Alcohol Use History: Unable to Obtain Past Drug Use History: Unable to Obtain General Exam Limitations: altered mental status, physical limitation Course Vital Signs 11/27/21 11/27/21 11/27/21 08:23 08:28 10:04 Temperature 98.3 F 98.3 F Pulse Rate 104 H 104 H 89 Respiratory 16 16 16 Rate Blood Pressure 156/124 133/103 O2 Sat by Pulse 96 96 97 Oximetry Medical Decision Making - Lab Data Result diagrams: 11/27/21 08:37 11/27/21 08:37 Lab Results 11/27/21 11/27/21 11/27/21 Range/Units 08:26 08:29 08:37 WBC 3.8 (3.8-10.6) k/uL RBC 4.34 (3.80-5.40) m/uL Hgb 14.1 (11.4-16.0) gm/dL Hct 42.4 (34.0-46.0) % MCV 97.6 (80.0-100.0) fL MCH 32.4 (25.0-35.0) pg MCHC 33.2 (31.0-37.0) g/dL RDW 13.0 (11.5-15.5) % Plt Count 188 (150-450) k/uL MPV 12.5 Neutrophils % (Manual) 63 % Lymphocytes % (Manual) 18 % Monocytes % (Manual) 17 % Eosinophils % (Manual) 2 % Neutrophils # (Manual) 2.39 (1.3-7.7) k/uL Lymphocytes # (Manual) 0.68 L (1.0-4.8) k/uL Monocytes # (Manual) 0.65 (0-1.0) k/uL Eosinophils # (Manual) 0.08 (0-0.7) k/uL Nucleated RBCs 0 (0-0) /100 WBC Manual Slide Review Performed Large Platelets Present RBC Morphology Normal PT (9.0-12.0) sec INR (<1.2) APTT (22.0-30.0) sec Sodium (137-145) mmol/L Potassium (3.5-5.1) mmol/L Chloride (98-107) mmol/L Carbon Dioxide (22-30) mmol/L Anion Gap mmol/L BUN (7-17) mg/dL Creatinine (0.52-1.04) mg/dL Est GFR (CKD-EPI)AfAm (>60 ml/min/1.73 sqM) Est GFR (CKD-EPI)NonAf (>60 ml/min/1.73 sqM) Glucose (74-99) mg/dL POC Glucose (mg/dL) 99 (75-99) mg/dL POC Glu Label Stitcher ID Jillian Joel Plasma Lactic Acid Kaleb 2.5 H* (0.7-2.0) mmol/L Calcium (8.4-10.2) mg/dL Magnesium (1.6-2.3) mg/dL Coronavirus (PCR) (Not Detectd) 11/27/21 11/27/21 11/27/21 Range/Units 08:37 08:37 09:30 WBC (3.8-10.6) k/uL RBC (3.80-5.40) m/uL Hgb (11.4-16.0) gm/dL Hct (34.0-46.0) % MCV (80.0-100.0) fL MCH (25.0-35.0) pg MCHC (31.0-37.0) g/dL RDW (11.5-15.5) % Plt Count (150-450) k/uL MPV Neutrophils % (Manual) % Lymphocytes % (Manual) % Monocytes % (Manual) % Eosinophils % (Manual) % Neutrophils # (Manual) (1.3-7.7) k/uL Lymphocytes # (Manual) (1.0-4.8) k/uL Monocytes # (Manual) (0-1.0) k/uL Eosinophils # (Manual) (0-0.7) k/uL Nucleated RBCs (0-0) /100 WBC Manual Slide Review Large Platelets RBC Morphology PT 10.1 (9.0-12.0) sec INR 0.9 (<1.2) APTT 22.4 (22.0-30.0) sec Sodium 142 (137-145) mmol/L Potassium 3.7 (3.5-5.1) mmol/L Chloride 105 (98-107) mmol/L Carbon Dioxide 27 (22-30) mmol/L Anion Gap 10 mmol/L BUN 14 (7-17) mg/dL Creatinine 0.64 (0.52-1.04) mg/dL Est GFR (CKD-EPI)AfAm >90 (>60 ml/min/1.73 sqM) Est GFR (CKD-EPI)NonAf >90 (>60 ml/min/1.73 sqM) Glucose 94 (74-99) mg/dL POC Glucose (mg/dL) (75-99) mg/dL POC Glu Label Stitcher ID Plasma Lactic Acid Kaleb (0.7-2.0) mmol/L Calcium 9.5 (8.4-10.2) mg/dL Magnesium 1.7 (1.6-2.3) mg/dL Coronavirus (PCR) Detected A (Not Detectd) Disposition Clinical Impression: COVID-19, New onset seizure Disposition: ADMITTED IP TO THIS [facility] Condition: Critical Instructions (If sedation given, give patient instructions): Seizure/Epilepsy Discharge Instructions & Follow-Up Referrals: Robby Elias MD [Primary Care Provider] - 1-2 days
[2021-11-27 09:04] LABS: African American GFR (CKD) >90 (>60 ml/min/1.73 sqM); Anion Gap 10 mmol/L; Blood Urea Nitrogen 14 mg/dL (7-17); Calcium 9.5 mg/dL (8.4-10.2); Carbon Dioxide 27 mmol/L (22-30); Chloride 105 mmol/L (98-107); Glucose 94 mg/dL (74-99); Magnesium 1.7 mg/dL (1.6-2.3); Non-African American GFR(CKD) >90 (>60 ml/min/1.73 sqM); Potassium 3.7 mmol/L (3.5-5.1); Sodium 142 mmol/L (137-145)
[2021-11-27 09:07] LABS: INR 0.9 (<1.2); Partial Thromboplastin Time 22.4 sec (22.0-30.0); Prothrombin Time 10.1 sec (9.0-12.0)
[2021-11-27 09:17] LABS: HCT 42.4 % (34.0-46.0); HGB 14.1 gm/dL (11.4-16.0); MCH 32.4 pg (25.0-35.0); MCHC 33.2 g/dL (31.0-37.0); MCV 97.6 fL (80.0-100.0); Mean Platelet Volume 12.5; Platelet Count 188 k/uL (150-450); RBC 4.34 m/uL (3.80-5.40); WBC 3.8 k/uL (3.8-10.6)
--- NOTE | 2021-11-27 09:34 | CT ---
EXAMINATION TYPE: CT brain wo con DATE OF EXAM: 11/27/2021 COMPARISON: MRI brain 10/21/2014 INDICATION: Seizure VS TIA DLP: 1114.8 mGycm, Automated exposure control for dose reduction was used. CONTRAST: None CT of the brain is performed utilizing 3 mm thick sections through the posterior fossa and 3 mm thick sections through the remaining calvarium. Study is performed within 24 hours of arrival to the hosp ital. No abnormal hyperdensity is present to suggest an acute intracranial hemorrhage. No mass lesion is evident. No acute infarcts are evident. There are patchy periventricular white matter hypodensities which are nonspecific but can be related to microvascular ischemic change. Findings can be related to multiple sclerosis in the proper clinical setting. Ventricles and sulci are appropriate for the patient age. Mild mucosal thickening is within left inferior maxillary sinus. Remaining paranasal sinuses and mast oid air cells are clear. IMPRESSIONS: 1. Patchy periventricular white matter hypodensity. With a history of multiple sclerosis, findings can be compatible with white matter plaques. Distribution is similar to prior exam. MRI can be perfor med if closer evaluation would be of benefit.
--- NOTE | 2021-11-27 09:37 | XR ---
EXAMINATION TYPE: XR chest 1V portable DATE OF EXAM: 11/27/2021 COMPARISON: 07/05/2016 HISTORY: Seizure TECHNIQUE: Single frontal view of the chest is obtained. FINDINGS: Heart is enlarged and there is a large hiatal hernia. There is a coarsened interstitium. N o pneumothorax. No pleural effusion. Biapical pleural thickening. IMPRESSION: Hiatal hernia. Coarsened interstitium likely chronic correlate for interstitial chronic lung disease.
--- NOTE | 2021-11-27 09:42 | P.CNNES ---
History of Present Illness Consult date: 11/27/21 Requesting physician: Ric Marshall Reason for Consult: seizure, Hx of MS History of Present Illness: This is a 51-year-old woman with medical history of multiple sclerosis for the last 15 years, wheelchair-bound, has baclofen pump for her spasticity, cognitive impairment, and hypertension who presented emergency department on the 11/27/2021 for seizure-like activity. History was obtained from the patient family members (mother and daughter are at bedside). Per the patient's daughter she stated that around 7 to 7:30 the patient the was stating that she is nauseous and the was about to throw up then all of a sudden the patient had the jerking of the the right upper extremity that evolved into entire body jerk in, I rolling back, foaming around the mouth, the patient was unresponsive and the episode lasted for about the 5-10 minutes and she was a post ictal for 20 minutes after that. Patient does not have any history of seizures in the past. The family was concerned that the patient was having cardiac event and they perform CPR on the patient. A mass was called and they thought the patient had left facial droop and they're concerned about a stroke per the ED team. Per family members patient the does not consume alcohol, or use any illicit drug use or use tobacco use. As stated earlier the patient has history of multiple sclerosis for the last 15 years and the she is following up with Dr. Banerjee. Patient is on Amprya 10mg bid, Vitamin D3 3000IU daily, Paxal 20mg daily, Lisnopril, Omeprazole, Ferrous Sulfate 325mg tid and is on Baclofen via pump. Per the patient's mother the patient has been having some memory loss over the last couple months and she had recent imaging (MRI Brain and back at her neurologist office) and was told that she has more lesions. Patient is wheelchair-bound and she has a predominantly lower extremity weakness wall or upper extremity and continues to be the strong. She has more left lower extremity weakness then the right. Some of the work-up in our facility consisted of: Initial vital signs was blood pressure of 156/124, heart rate of 104, respira tory of 16, temperature of 98.3 Fahrenheit oral and pulse ox of 96% room air. CBC is unremarkable So far the chemistry panel has been unremarkable. The POC glucose is 99 and the serum glucose is 94. The magnesium is 1.7, calcium is 9.5. Review of Systems Review of system: The 12 point system was reviewed and apparent positive and negative per HPI. Past Medical History Past Medical History: CVA/TIA, Seizure Disorder Additional Past Medical History / Comment(s): MS History of Any Multi-Drug Resistant Organisms: None Reported Past Surgical History: Hysterectomy, Orthopedic Surgery Additional Past Surgical History / Comment(s): oral carpel tunnel. BACLOFEN PUMP IN ABDOMEN. Additional Past Anesthesia/Blood Transfusion Reaction / Comment(s): MOTHER NOTED WITH "VIOLENT NAUSEA AND VOMITING PRIOR TO SURGERIES. Past Psychological History: No Psychological Hx Reported Smoking Status: Never smoker Past Alcohol Use History: Unable to Obtain Past Drug Use History: Unable to Obtain Medications and Allergies Home Medications Medication Instructions Recorded Confirmed Type Cholecalciferol (Vitamin D3) 3,000 units PO DAILY 07/06/15 10/12/21 History [Vitamin D] Dalfampridine [Ampyra] 10 mg PO BID 07/06/15 10/12/21 History lisinopriL [Lisinopril] 10 mg PO DAILY 07/06/15 10/12/21 History Baclofen 1 tab PO DIRECTED 06/07/21 10/12/21 History Omeprazole 1 tab PO DAILY 06/07/21 10/12/21 History PARoxetine HCL [Paxil] 1 tab PO DAILY 06/07/21 10/12/21 History Allergies Allergy/AdvReac Type Severity Reaction Status Date / Time glatiramer acetate Allergy Severe Unknown Verified 10/12/21 13:14 [From Copaxone] interferon beta-1a Allergy Severe Unknown Verified 10/12/21 13:14 [From Avonex] meperidine HCl [From Demerol] Allergy Intermediate Rash/Hives Verified 10/12/21 13:14 albumin human AdvReac Severe Unknown Verified 10/12/21 13:14 [From Rebif (with albumin)] Physical Examination - Vital Signs Vital Signs: Vital Signs Temp Pulse Resp BP Pulse Ox 11/27/21 08:28 98.3 F 104 H 16 96 11/27/21 08:23 98.3 F 104 H 16 156/124 96 Intake and Output 11/26/21 11/27/21 11/27/21 22:59 06:59 14:59 Other: Weight 72.575 kg GENERAL: The patient is lying in bed and is not in acute distress. CHEST: The heart rate is regular rate rhythm. No murmurs to auscultation. LUNG: Clear to auscultation bilaterally no wheezing noted throughout. Not labored breathing. ABDOMEN/GI: Bowel sounds present in all 4 quadrants. No tenderness to palpation throughout. NEUROLOGICAL: Higher mental function: The patient is awake, alert, oriented to self and place. She stated she does not know year and month. She is able to correctly state she is in [facility]. Patient is following simple commands. No aphasia and no neglect. Cranial nerves: The pupils are round, equal and reactive to light. Visual rao are full to confrontation throughout. Extraocular movement is intact no nystagmus is noted. Facial sensation is normal to touch throughout. The facial strength is normal throughout. Hearing is normal bilaterally to hand rub. Tongue is midline and moved [id number] without any difficulty. No dysarthria is noted. Shoulder shrug is normal bilaterally. Motor: Gait is deferred since patient is wheel chair bound. The strength is 5 over 5 throughout uppers. Lowers (Right/Left) thigh is 4+/3-4, knee extension is 4/4-, ankle plantarflexion is 4/spastic while dorsiflexion is 2-3/spastic. Has spasticity over left lower extremity and ankle is inverted in. Cerebellum: Normal finger to nose bilaterally. Sensation: Sensation is normal to touch throughout. Reflexes (right/left): 1+ throughout. Plantars are mute bilaterally. Results - Laboratory Findings CBC and BMP: 11/27/21 08:37 11/27/21 08:37 Assessment and Plan Assessment: New onset seizure-like activity that is witnessed (right upper extremity jerking of focal motor seizure with LOC generalizing into GTC, eye rolling back and foaming around the mouth). History of Multiple Sclerosis for past 15 years Cognitive impairement Wheel chair bound due to her MS Spasticity of lowers and is on Baclofen pump History of Hypertension Plan: I ordered an urgent EEG. I'll not start the patient on an antiepileptic drug unless there is epileptiform discharges or there is seizure activity on EEG or a patient has another clinical seizure. This is the first seizure activity the patient has. CT of the head and CT angiography is ordered by the ED team is pending Ordered prolactin level and lactic acid level Every 4 hours neuro checks Placed the patient on seizure precautions and seizure pads. After CT head, will consider obtaining MRI of the brain with and without if possible (patient has Baclofen pump) if compatible. We'll defer the rest of medical management the primary team Upon discharge the patient needs to follow-up with her neurologist (Dr. Mora) within 1-2 weeks. The plan is discussed with the patient's family (mother and daughter) and ED attending. Thank you for the consultation. Miguelito Tavarez M.D. Neuro-Hospitalist Time with Patient: Greater than 30
[2021-11-27 09:44] LABS: Eosinophils # (M) 0.08 k/uL (0-0.7); Large Platelets Present; Lymphocytes # (M) 0.68 k/uL (1.0-4.8); Monocytes # (M) 0.65 k/uL (0-1.0); Neutrophils # (M) 2.39 k/uL (1.3-7.7); Neutrophils % (M) 63 %; Nucleated Red Blood Cells 0 /100 WBC (0-0); RBC Morphology Normal; Total Cells Counted 100
[2021-11-27] MEDS ORDERED: NALOXONE 0.4 MG/ML 1 ML VIAL IV PRN (10:08)
--- NOTE | 2021-11-27 10:16 | CT ---
EXAMINATION TYPE: CT angio head neck DATE OF EXAM: 11/27/2021 HISTORY: Seizure VS TIA COMPARISON: None CT DLP: 348.2 mGycm. Automated Exposure Control for Dose Reduction was Utilized. TECHNIQUE: CTA scan of the neck is performed with IV Contrast, patient injected with 65 mL of Isovue 370, axial images are obtained, coronal and sagittal reformatted images are reviewed. Three-D recons tructed images are created on an independent workstation and reviewed. Source images are reviewed. FINDINGS: Carotid/Vascular Structures: There is a three-vessel arch. Left vertebral artery may be dominant. Car otid bifurcations appear normal. No focal stenosis is evident. Internal carotid arteries and vertebra l arteries are patent to the skull base. Cervical of Sam: Vertebral basilar system appears normal. Posterior cerebral vasculature is unrema rkable. Internal carotid arteries bifurcate normally into A1 and M1 segments. Right A1 segment is theodora ewhat hypoplastic but patent. A2 segments are normal. The anterior communicating artery is patent. Le ft Posterior communicating artery is patent. Right posterior communicating artery is patent. Other: There is minimal degenerative disc changes through the cervical spine. Prevertebral space is n ormal. IMPRESSION: 1. No significant flow-limiting stenosis bilateral carotid bifurcations. 2. Normal [place] of [place] NASCET criteria was used in interpretation of this exam?
[2021-11-27] MEDS ORDERED: SODIUM CHLORIDE 0.9% 50 ML IVPB ONE (10:45)
[2021-11-27] MEDS: SODIUM CHLORIDE 0.9% 1,000 ML IV SCH (10:45)
[2021-11-27] MEDS ORDERED: BAMLANIVIMAB (EUA) 700 MG, ETESEVIMAB (EUA) 1,400 MG in SODIUM CHLORIDE 0.9% 100 ML IVPB ONE (11:00)
[2021-11-27] MEDS ORDERED: BACLOFEN 10 MG TAB PO PRN (11:12)
[2021-11-27] MEDS ORDERED: ACETAMINOPHEN TAB 325 MG TAB PO PRN (12:12)
--- NOTE | 2021-11-27 12:12 | US ---
EXAMINATION TYPE: US venous doppler duplex LE DATE OF EXAM: 11/27/2021 12:06 PM COMPARISON: NONE CLINICAL HISTORY: covid r/o dvt. Abnormal labs, Covid SIDE PERFORMED: Bilateral TECHNIQUE: The lower extremity deep venous system is examined utilizing real time linear array sonog dimitri with graded compression, doppler sonography and color-flow sonography. VESSELS IMAGED: Common Femoral Vein Deep Femoral Vein Greater Saphenous Vein * Femoral Vein Popliteal Vein Small Saphenous Vein * Proximal Calf Veins (* superficial vessels) Right Leg: Negative for DVT Left Leg: Negative for DVT IMPRESSION: Grayscale, color doppler, spectral doppler imaging performed of the deep veins of the lo wer extremities. There is normal flow, compressibility, vascular waveforms.
--- NOTE | 2021-11-27 13:22 | P.HPIM ---
History of Present Illness H&P Date: 11/27/21 History of present illness 51 years old female patient of mine with past medical history multiple sclerosis, thyroid nodule is bedbound, follows Dr. Banerjee comes in today via EMS after she had a witnessed tonic-clonic like activity around 7:30 in the morning upon EMS arrival patient was part having in the tonic-clonic activity she was noted to be sitting in the wheelchair, patient was noted to be aphasic not really following any command and had left-sided facial droop. She had high blood pressure there was a concern for CVA. Daughter at bedside does report "drooling, eyes rolling and tonic-clonic activity. She was dropped to the ground so the patient has not aspirate. No tongue biting or urinary incontinence noted. She had 30-45 minutes of unresponsiveness. Patient was not ed to have increase phlegm production for the past couple days. Feeling of unwell. She denies any body aches, fever or chills. Patient was fairly doing well yesterday. At baseline patient has decreased and involving bilateral lower extremity with left lower extremity worse than the right along with a left foot drop with inverted contraction of the foot. Patient's family denies any history of DVT in the past. Denies any chest pain or shortness breath. No recent steroid use. She is a awaiting MS treatment with Dr. Banerjee. CT brain patchy periventricular white matter hypodensity suggestive of multiple sclerosis CT angiogram no significant flow-limiting stenosis bilateral carotid bifurcation normal [place] Chest x-ray suggestive of chronic interstitial disease or lung disease with hiatal hernia ROS Constitutional: Denies chills, Denies fever, endorses lethargy, Denies malaise, Denies poor appetite, Denies weakness, Denies weight loss Eyes: denies decreased vision, denies diplopia, denies discharge, denies pain Ears: deny: decreased hearing Ears, nose, mouth and throat: Denies dental pain, Denies headache, Denies nasal discharge, Denies nose pain Cardiovascular: Denies chest pain, Denies decreased exercise tolerance, Denies edema, Denies high blood pressure, Denies irregular heart beat, Denies palpitations, Denies paroxysmal nocturnal dyspnea, Denies rapid heart beat, Denies shortness of breath Respiratory: Denies congestion, Denies cough, Denies cough with sputum, Denies dyspnea, Denies home oxygen, Denies wheezing Gastrointestinal: Denies abdominal pain, Denies change in bowel habits, Denies coffee ground emesis, Denies early satiety, Denies excessive gas, Denies heartburn, Denies hematemesis, Denies hematochezia, Denies loss of appetite, Denies nausea, Denies vomiting Genitourinary: Denies dysuria, Denies flank pain, Denies kidney stones, Denies menorrhagia, Denies urgency, Denies urinary frequency Musculoskeletal: Wheelchair bound, with limitation of motion, Denies morning stiffness, positive for muscle cramps Integumentary: Denies rash, Denies wounds, Denies brittle nails, Denies change in hair/nails, Denies darkening of skin Neurological: Positive for seizure, increased tone, unresponsiveness, gait dysfunction, Denies change in speech, Denies double vision,, Denies loss of vision, Denies motor disturbance, Denies numbness, Denies paralysis, Denies paresthesias, Denies seizures Psychiatric: Denies anxiety, Denies depression Endocrine: Denies excessive sweating, Denies excessive thirst, Denies high blood sugars, Denies palpitations Hematologic/Lymphatic: Denies easy bruising, Denies lymphadenopathy Social history Nonsmoker nondrinker. Quit smoking 20 years ago "1 smokes 1 pack a day, quit 20 years ago, occasional alcohol drink no illicit drug use Family history Mother with no significant medical problem Father has aortic stenosis, under evaluation One brother no medical problems 3 sons and one daughter healthy doing well Physical exam - Constitutional General appearance: cooperative, no acute distress, thin - EENT Eyes: anicteric sclerae, PERRLA, normal appearance ENT: hearing grossly normal - Neck Neck: no lymphadenopathy, normal ROM, no other, no rigidity, no stridor, no thyromegaly - Respiratory Respiratory: bilateral: CTA, negative: diminished, dullness, rales, rhonchi - Cardiovascular Rhythm: regular Heart sounds: normal: S1, S2 Abnormal Heart Sounds: no systolic murmur, no diastolic murmur, no rub, no S3 Gallop, no S4 Gallop, no click, no other - Gastrointestinal General gastrointestinal: normal bowel sounds, soft - Integumentary Integumentary: no rash - Neurologic Neurologic: No nystagmus, tone slightly increased in bilateral lower extremity and upper increased extremity oriented 3. Vision intact, no facial droop CNII- XII intact - Musculoskeletal Musculoskeletal: Bedbound left lower extremity worse than the right with inverted contracture and left foot drop, motor deficit 3/5 - Psychiatric Psychiatric: A&O x's 3, appropriate affect Assessment and plan New onset seizure unclear etiology - EEG ordered -Neurology consult -CT brain suggestive of multiple white matter changes suggestive of multiple sclerosis - Lactic acid 2.5 on arrival is currently 1.2 -Seizure precautions -Fall precautions - Neuro check every 6 hours Acute COVID infection - Inflammatory markers are mildly evaluated - Continue vitamin C, D and zinc - Monoclonal antibody administrated on 11/27 - Dexamethasone 6 mg by mouth daily - r/o DVT - venous doppler ordered Multiple sclerosis - On baclofen pump. Continue baclofen 10 mg 4 times a day - On Dalfampridine 10 mg twice a day - Follow outpatient with Dr. Banerjee Depression -Continue Paxil 20 mg by mouth daily GERD Continue pantoprazole 40 mg twice a day Hypertension Continue lisinopril 10 mg daily CODE STATUS full code Disposition patient to be stabilized and on seizure precautions for that 1-2 inpatient nights Past Medical History Past Medical History: CVA/TIA, Seizure Disorder Additional Past Medical History / Comment(s): MS History of Any Multi-Drug Resistant Organisms: None Reported Past Surgical History: Hysterectomy, Orthopedic Surgery Additional Past Surgical History / Comment(s): oral carpel tunnel. BACLOFEN PUMP IN ABDOMEN. Additional Past Anesthesia/Blood Transfusion Reaction / Comment(s): MOTHER NOTED WITH "VIOLENT NAUSEA AND VOMITING PRIOR TO SURGERIES. Past Psychological History: No Psychological Hx Reported Smoking Status: Never smoker Past Alcohol Use History: Unable to Obtain Past Drug Use History: Unable to Obtain Medications and Allergies Home Medications Medication Instructions Recorded Confirmed Type Dalfampridine [Ampyra] 10 mg PO BID 07/06/15 11/27/21 History lisinopriL [Lisinopril] 10 mg PO DAILY 07/06/15 11/27/21 History Baclofen 10 tab PO QID PRN 06/07/21 11/27/21 History Omeprazole 20 mg PO BID 06/07/21 11/27/21 History PARoxetine HCL [Paxil] 20 mg PO DAILY 06/07/21 11/27/21 History Baclofen Pump 1 dose INTRATHECA CONTINUOUS 11/27/21 11/27/21 History Cholecalciferol [Vitamin D3 (25 75 mcg PO DAILY 11/27/21 11/27/21 History Mcg = 1000 Iu)] Ferrous Sulfate [Feosol] 325 mg PO TID 11/27/21 11/27/21 History Allergies Allergy/AdvReac Type Severity Reaction Status Date / Time glatiramer acetate Allergy Severe Unknown Verified 11/27/21 09:36 [From Copaxone] interferon beta-1a Allergy Severe Unknown Verified 11/27/21 09:36 [From Avonex] meperidine HCl [From Demerol] Allergy Intermediate Rash/Hives Verified 11/27/21 09:36 albumin human AdvReac Severe Unknown Verified 11/27/21 09:36 [From Rebif (with albumin)] Physical Exam Vitals: Vital Signs Temp Pulse Resp BP Pulse Ox 11/27/21 10:38 83 16 149/102 98 11/27/21 10:04 89 16 133/103 97 11/27/21 08:28 98.3 F 104 H 16 96 11/27/21 08:23 98.3 F 104 H 16 156/124 96 Intake and Output 11/26/21 11/27/21 11/27/21 22:59 06:59 14:59 Other: Weight 72.575 kg Results CBC & Chem 7: 11/27/21 08:37 11/27/21 08:37 Labs: Abnormal Lab Results - Last 24 Hours (Table) 11/27/21 11/27/21 11/27/21 Range/Units 08:29 08:37 08:37 Lymphocytes # (Manual) 0.68 L (1.0-4.8) k/uL D-Dimer (<0.60) mg/L FEU Plasma Lactic Acid Kaleb 2.5 H* (0.7-2.0) mmol/L Lactate Dehydrogenase 630 H (313-618) U/L Coronavirus (PCR) (Not Detectd) 11/27/21 11/27/21 Range/Units 08:37 09:30 Lymphocytes # (Manual) (1.0-4.8) k/uL D-Dimer 0.67 H (<0.60) mg/L FEU Plasma Lactic Acid Kaleb (0.7-2.0) mmol/L Lactate Dehydrogenase (313-618) U/L Coronavirus (PCR) Detected A (Not Detectd)
[2021-11-27] MEDS: lisinopriL 10 MG TAB PO SCH (13:30)
[2021-11-27] MEDS: BACLOFEN PUMP MISCELLANE SCH (14:04)
[2021-11-27] MEDS ORDERED: ONDANSETRON 4 MG/2 ML VIAL IVP PRN (14:16)
[2021-11-27] MEDS: dexAMETHasone 2 MG TAB PO SCH (15:11)
[2021-11-27] MEDS: CHOLECALCIFEROL 25 MCG (1000 IU) TABLET PO SCH (15:11)
[2021-11-27] MEDS: FERROUS SULFATE 325 MG TAB PO SCH ×2 (15:11→21:27)
[2021-11-27] MEDS: ZINC SULFATE 220 MG CAP PO SCH (15:11)
[2021-11-27] MEDS: DALFAMPRIDINE 10 MG PO SCH (21:27)
[2021-11-27] MEDS: PANTOPRAZOLE 40 MG TABLET PO SCH (21:27)
[2021-11-27] MEDS: ASCORBIC ACID 500 MG TAB PO SCH (21:27)
[2021-11-28] MEDS: CHOLECALCIFEROL 25 MCG (1000 IU) TABLET PO SCH (07:58)
[2021-11-28] MEDS: ZINC SULFATE 220 MG CAP PO SCH (07:58)
[2021-11-28] MEDS: dexAMETHasone 2 MG TAB PO SCH (07:59)
[2021-11-28] MEDS: FERROUS SULFATE 325 MG TAB PO SCH (07:59)
[2021-11-28] MEDS: DALFAMPRIDINE 10 MG PO SCH (07:59)
[2021-11-28] MEDS: ASCORBIC ACID 500 MG TAB PO SCH (07:59)
[2021-11-28] MEDS: lisinopriL 10 MG TAB PO SCH (07:59)
[2021-11-28] MEDS: PANTOPRAZOLE 40 MG TABLET PO SCH (07:59)
[2021-11-28] MEDS: BACLOFEN PUMP MISCELLANE SCH (08:01)
[2021-11-28] MEDS ORDERED: CHOLECALCIFEROL 25 MCG (1000 IU) TABLET PO SCH (09:00)
[2021-11-28] MEDS ORDERED: PARoxetine 20 MG TAB PO SCH (09:00)
[2021-11-28 10:55] VITALS: RESP 16
[2021-11-28] MEDS: SODIUM CHLORIDE 0.9% 1,000 ML IV SCH (11:53)
--- NOTE | 2021-11-28 13:22 | P.PN ---
Subjective Progress Note Date: 11/28/21 The patient seen at bedside and she states that she's doing drastically better today compared to yesterday. She denies of any neurological problems. Per the patient's nurse no further seizures. Objective - Vital Signs Vital signs: Vital Signs Temp 97.5 F L 11/28/21 09:50 Pulse 87 11/28/21 09:50 Resp 16 11/28/21 09:50 BP 113/77 11/28/21 09:50 Pulse Ox 98 11/28/21 09:50 Intake & Output 11/27/21 11/28/21 11/28/21 18:59 06:59 18:59 Intake Total 160 Output Total 600 1225 1000 Balance -600 -1225 -840 Weight 72.575 kg Intake: Intake, IV Titration 160 Amount Sodium Chloride 0.9% 1, 160 000 ml @ 20 mls/hr IV . Q24H [facility] Rx#:[id number] Output: Urine 600 1225 1000 Uretheral (Davalos) 1000 Other: Voiding Method Indwelling Catheter Indwelling Catheter Indwelling Catheter - Exam GENERAL: The patient is lying in bed and is not in acute distress. NEUROLOGICAL: Higher mental function: The patient is awake, alert, oriented to self, place and time. She seems more awake today and more responsive in answering questions compared to yesterday. Patient is following simple commands. No aphasia and no neglect. Cranial nerves: The pupils are round, equal and reactive to light. Visual rao are full to confrontation throughout. Extraocular movement is intact no nystagmus is noted. Facial sensation is normal to touch throughout. The facial strength is normal throughout. Hearing is normal bilaterally to hand rub. Tongue is midline and moved [id number] without any difficulty. No dysarthria is noted. Shoulder shrug is normal bilaterally. Motor: Gait is deferred since patient is wheel chair bound. The strength is 5 over 5 throughout uppers. Lowers (Right/Left) thigh is 4+/3-4, knee extension is 4/4-, ankle plantarflexion is 4/spastic while dorsiflexion is 2-3/spastic. Has spasticity over left lower extremity and ankle is inverted in. Cerebellum: Normal finger to nose bilaterally. Sensation: Sensation is normal to touch throughout. Reflexes (right/left): 1+ throughout. Plantars are mute bilaterally. WORK-UP: CT of the head is reported as patchy periventricular white matter hypodensity. With history of multiple sclerosis, finding can be compatible with white matter plaques. Distribution similar to prior exam. 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 CT angiography of the head and neck is reported as normal CBC with differential is unremarkable Chemistry panel is unremarkable. Calcium is 9.5, magnesium is 1.7. Initial serum glucose is 94 Prolactin level is 52. Possible lactic acid venous 2.5. Torres virus PCR is detected. - Labs CBC & Chem 7: 11/27/21 08:37 11/27/21 08:37 Labs: Abnormal Lab Results - Last 24 Hours (Table) 11/27/21 Range/Units 08:29 Prolactin 52.700 H (2.800-29.200) ng/mL Assessment and Plan Assessment: New onset seizure-like activity that is witnessed (right upper extremity jerking of focal motor seizure with LOC generalizing into GTC, eye rolling back and foaming around the mouth). This seizure seems likely provoked and possibly due to new onset COVID-19 Acute COVID-19 infection History of Multiple Sclerosis for past 15 years Cognitive impairement Wheel chair bound due to her MS Spasticity of lowers and is on Baclofen pump History of Hypertension Plan: Routine EEG: Pre-liminary report is normal. There is no focal slowing, epileptiform discharges or seizure on the EEG. I will not start the patient on antiepileptic drugs since this is the first seizure and seems more likely provoked. The patient has further seizures recommend starting the patient on antiepileptic drugs. She is to follow with her neurologist (Dr. Banerjee) for further management. Recommend MRI of the brain with and without as outpatient (she has Baclofen pump and had MRI at her neurologist facility to see if any new lesions. Patient is on dexamethasone for her COVID-19 infection ordered by the primary team. Every 4 hours neuro checks On seizure precautions and seizure pads. We'll defer the rest of medical management the primary team Upon discharge the patient needs to follow-up with her neurologist (Dr. Mora) within 1-2 weeks. The plan is discussed with the patient's nurse. There is no further neurological work-up. Patient is clear from neurological perspective. Miguelito Tavarez M.D. Neuro-Hospitalist Time with Patient: Less than 30
--- NOTE | 2021-11-28 14:03 | P.DS ---
Providers Date of admission: 11/27/21 13:12 Expected date of discharge: 11/28/21 Attending physician: Robby Elias MD Consults: 11/27/21 08:42 Consult Physician Routine Consulting Provider: Miguelito Tavarez Consult Reason/Comments: seizure, history of MS Do you want consulting provider notified?: Yes Primary care physician: Robby Elias MD Hospital Course: History of present illness 51 years old female patient of mine with past medical history multiple sclerosis, thyroid nodule is bedbound, follows Dr. Banerjee comes in today via EMS after she had a witnessed tonic-clonic like activity around 7:30 in the morning upon EMS arrival patient was part having in the tonic-clonic activity she was noted to be sitting in the wheelchair, patient was noted to be aphasic n ot really following any command and had left-sided facial droop. She had high blood pressure there was a concern for CVA. Daughter at bedside does report "drooling, eyes rolling and tonic-clonic activity. She was dropped to the ground so the patient has not aspirate. No tongue biting or urinary incontinence noted. She had 30-45 minutes of unresponsiveness. Patient was noted to have increase phlegm production for the past couple days. Feeling of unwell. She denies any body aches, fever or chills. Patient was fairly doing well yesterday. At baseline patient has decreased and involving bilateral lower extremity with left lower extremity worse than the right along with a left foot drop with inverted contraction of the foot. Patient's family denies any history of DVT in the past. Denies any chest pain or shortness breath. No recent steroid use. She is a awaiting MS treatment with Dr. Banerjee. CT brain patchy periventricular white matter hypodensity suggestive of multiple sclerosis CT angiogram no significant flow-limiting stenosis bilateral carotid bifurcation normal kaw of [place] Chest x-ray suggestive of chronic interstitial disease or lung disease with hiatal hernia 11/28: Patient states that she is feeling significantly better today. She has had no further seizure activity. Patient has been seen by neurology and he does not recommend any antiepileptic drugs at this time since this is the first time seizure and likely provoked, possibly from Covid 19 infection. Patient to follow-up with Dr. Banerjee. He recommends MRI of the brain without and without contrast as an outpatient to see if there are any new lesions which she can follow-up with Dr. Banerjee. Patient has been cleared by neurology for discharge. Prolactin 52.7. Patient will be discharged home in stable condition. DISCHARGE DIAGNOSES New onset seizure unclear etiology Acute COVID infection Multiple sclerosis Depression, recurrent GERD Hypertension DISCHARGE PLAN HOME Greater than 35 minutes was utilized and coordinating patient's discharge. Impression and plan of care have been directed as dictated by the signing physician. Ruthy Oliva nurse practitioner acting as scribe for signing physician. Patient Condition at Discharge: Good Plan - Discharge Summary Discharge Rx Participant: No New Discharge Prescriptions: New Dexamethasone [Decadron] 6 mg PO DAILY #5 tablet Zinc Sulfate [Orazinc] 220 mg PO DAILY cap Ascorbic Acid [Vitamin C] 500 mg PO BID tab Continue lisinopriL [Lisinopril] 10 mg PO DAILY Dalfampridine [Ampyra] 10 mg PO BID Baclofen 10 tab PO QID PRN PRN Reason: Muscle Spasm PARoxetine HCL [Paxil] 20 mg PO DAILY Ferrous Sulfate [Iron (65 MG Elemental)] 325 mg PO TID Baclofen Pump 1 dose INTRATHECA CONTINUOUS Omeprazole 20 mg PO BID Cholecalciferol [Vitamin D3 (25 Mcg = 1000 Iu)] 75 mcg PO DAILY Discharge Medication List Dalfampridine [Ampyra] 10 mg PO BID 07/06/15 [History] lisinopriL [Lisinopril] 10 mg PO DAILY 07/06/15 [History] Baclofen 10 tab PO QID PRN 06/07/21 [History] Omeprazole 20 mg PO BID 06/07/21 [History] PARoxetine HCL [Paxil] 20 mg PO DAILY 06/07/21 [History] Baclofen Pump 1 dose INTRATHECA CONTINUOUS 11/27/21 [History] Cholecalciferol [Vitamin D3 (25 Mcg = 1000 Iu)] 75 mcg PO DAILY 11/27/21 [History] Ferrous Sulfate [Iron (65 MG Elemental)] 325 mg PO TID 11/27/21 [History] Ascorbic Acid [Vitamin C] 500 mg PO BID tab 11/28/21 [Rx] Dexamethasone [Decadron] 6 mg PO DAILY #5 tablet 11/28/21 [Rx] Zinc Sulfate [Orazinc] 220 mg PO DAILY cap 11/28/21 [Rx] Follow up Appointment(s)/Referral(s): Ana Banerjee MD [Medical Doctor] - 1 Week Robby Elias MD [Primary Care Provider] - 1 Week Patient Instructions/Handouts: Seizure/Epilepsy Discharge Instructions & Follow-Up, Coronavirus Disease 2019 (COVID-19) Discharge Disposition: HOME SELF-CARE
[2021-11-28 15:07] VITALS: BP 118/83; PULSE 90; TEMP 97.7
--- NOTE | 2021-11-28 17:28 | EEG ---
ELECTROENCEPHALOGRAM REPORT DATE OF SERVICE: 11/28/2021 CLINICAL HISTORY: This is a 51-year-old woman with medical history of multiple sclerosis who had witnessed seizure-like activity by family. She was recently found to be COVID- 19 positive during this hospital stay. The video EEG is obtained to evaluate for seizure epileptiform activity. RELEVANT MEDICATION: The patient is not on any antiepileptic drugs. EEG TYPE: A routine 21 channel EEG is performed with video using the 10/20 electrode placement system. DESCRIPTION: Awake state is only obtained. During awake state, posterior dominant rhythm consists of low to moderate voltage, well modulated, well sustained of 8.5 hertz activity. There is no physiological stage 2 sleep. There is no focal slowing seen. There is significant myogenic artifact over the left hemisphere. Interictal and ictal is none. ACTIVATION PROCEDURE: Photic stimulation and hyperventilation is not performed because of the COVID status. CLINICAL INTERPRETATION: This is a normal routine EEG. There is no focal slowing, epileptiform discharge or seizure on the EEG. Clinical correlation is recommended. MMMIHIR / TONY: [id number] / STEVE
== END 2021-11-28 16:26 | disposition home or self-care (01) ==
LOC: EC 08:22 → 6NMEDSUR 10:10 → 4SSUR 10:39 → OBSVTOIN 13:12 → INTOOBSV 13:12 → UNDODISIN 11-28 16:26
PROVIDERS: ADMIT Internal Medicine; ATTEND Internal Medicine
DX: G40.909 Epilepsy, unspecified, not intractable, without status epilepticus (principal); U07.1 COVID-19; G35 Multiple sclerosis; F33.9 Major depressive disorder, recurrent, unspecified; K21.9 Gastro-esophageal reflux disease without esophagitis; I10 Essential (primary) hypertension; R05.9 Cough, unspecified; R25.2 Cramp and spasm; R47.01 Aphasia; R29.810 Facial weakness; M21.372 Foot drop, left foot; E04.1 Nontoxic single thyroid nodule; Z99.3 Dependence on wheelchair; Z86.73 Personal history of transient ischemic attack (TIA), and cerebral infarction without residual deficits; Z79.899 Other long term (current) drug therapy; Z71.9 Counseling, unspecified; Z96.89 Presence of other specified functional implants; Z87.891 Personal history of nicotine dependence; Z74.01 Bed confinement status; Z88.8 Allergy status to other drugs, medicaments and biological substances; Z88.5 Allergy status to narcotic agent; Z90.710 Acquired absence of both cervix and uterus
CPT/HCPCS: 96360; 96361; 99285; 36415; 95816; 93005; 85379; 80048; 82728; 83605; 83615; 83735; 85025; 85610; 85730; 86140; 84146; 87635; 71045; 93970; 70496; 70450; 70498; G0378 ×3; M0245; J8540 ×2; Q9967; J3490; 84145

== ENCOUNTER 2022-10-08 03:43 | Emergency (ER) | payer OTHER ==
[2022-10-08 03:55] VITALS: RESP 18
[2022-10-08 04:07] VITALS: TEMP 97.8
[2022-10-08 04:13] LABS: Basophils % (A) 0 %; Eosinophils # (A) 0.2 k/uL (0-0.7); Eosinophils % (A) 4 %; HCT 42.1 % (34.0-46.0); HGB 14.6 gm/dL (11.4-16.0); Lymphocytes # (A) 0.5 k/uL (1.0-4.8); Lymphocytes % (A) 10 %; MCH 31.6 pg (25.0-35.0); MCHC 34.7 g/dL (31.0-37.0); MCV 91.2 fL (80.0-100.0); Mean Platelet Volume 10.8; Monocytes # (A) 0.5 k/uL (0-1.0); Monocytes % (A) 10 %; Neutrophils # (A) 3.7 k/uL (1.3-7.7); Neutrophils % (A) 71 %; Platelet Count 306 k/uL (150-450); RBC 4.62 m/uL (3.80-5.40); RDW 12.4 % (11.5-15.5); WBC 5.2 k/uL (3.8-10.6)
[2022-10-08 04:23] LABS: ALT 44 U/L (4-34); AST 31 U/L (14-36); African American GFR (CKD) >90 (>60 ml/min/1.73 sqM); Albumin 4.3 g/dL (3.5-5.0); Alkaline Phosphatase 119 U/L (38-126); Anion Gap 7 mmol/L; Blood Urea Nitrogen 17 mg/dL (7-17); Calcium 9.6 mg/dL (8.4-10.2); Carbon Dioxide 31 mmol/L (22-30); Chloride 99 mmol/L (98-107); Glucose 110 mg/dL (74-99); Magnesium 1.8 mg/dL (1.6-2.3); Non-African American GFR(CKD) >90 (>60 ml/min/1.73 sqM); Potassium 4.1 mmol/L (3.5-5.1); Sodium 137 mmol/L (137-145); Total Bilirubin 0.4 mg/dL (0.2-1.3); Total Protein 6.5 g/dL (6.3-8.2)
--- NOTE | 2022-10-08 06:47 | ED ---
Seizure HPI - General Chief Complaint: Seizure Stated Complaint: Seizure Time Seen by Provider: 10/08/22 04:00 Source: family, EMS, old records reviewed Mode of arrival: EMS Limitations: altered mental status - History of Present Illness Initial Comments: 52-year-old female with past history of CVA, MS who presents emergency department after she had a seizure. Patient was at the [facility] lab [facility] when she ended up having a five-minute seizure during her study. EMS was called. She was post ictal. She did not bite her tongue. No bowel or bladder incontinence. Upon arrival patient still is confused. Mother does present to bedside. States that the patient did have a seizure earlier this year. As she had one isolated seizure she was not placed on any medications. States that after this the patient had a second seizure approximately 3 weeks later. She saw her neurologist, Dr. Banerjee who placed her on Keppra. She follows frequently with him. She went several months without seizure and therefore she was taken off the medication. She denies any additional medication changes. No recent head trauma. Denies fevers. No headache. Patient did not suffer any trauma because of the seizure. No other alleviating, Perceptin or modifying factors - Related Data Home Medications Medication Instructions Recorded Confirmed Dalfampridine [Ampyra] 10 mg PO BID 07/06/15 11/27/21 lisinopriL [Lisinopril] 10 mg PO DAILY 07/06/15 11/27/21 Baclofen 10 tab PO QID PRN 06/07/21 11/27/21 Omeprazole 20 mg PO BID 06/07/21 11/27/21 PARoxetine HCL [Paxil] 20 mg PO DAILY 06/07/21 11/27/21 Baclofen Pump 1 dose INTRATHECA CONTINUOUS 11/27/21 11/27/21 Cholecalciferol [Vitamin D3 (25 75 mcg PO DAILY 11/27/21 11/27/21 Mcg = 1000 Iu)] Ferrous Sulfate [Iron (65 MG 325 mg PO TID 11/27/21 11/27/21 Elemental)] Previous Rx's Medication Instructions Recorded Ascorbic Acid [Vitamin C] 500 mg PO BID tab 11/28/21 Zinc Sulfate [Orazinc] 220 mg PO DAILY cap 11/28/21 dexAMETHasone [Decadron] 6 mg PO DAILY #5 tablet 11/28/21 levETIRAcetam [Keppra] 500 mg PO Q12HR #60 tab 10/08/22 Allergies Allergy/AdvReac Type Severity Reaction Status Date / Time glatiramer acetate Allergy Severe Unknown Verified 11/27/21 09:36 [From Copaxone] interferon beta-1a Allergy Severe Unknown Verified 11/27/21 09:36 [From Avonex] meperidine HCl [From Demerol] Allergy Intermediate Rash/Hives Verified 11/27/21 09:36 albumin human AdvReac Severe Unknown Verified 11/27/21 09:36 [From Rebif (with albumin)] Review of Systems ROS Statement: Those systems with pertinent positive or pertinent negative responses have been documented in the HPI. ROS Other: All systems not noted in ROS Statement are negative. Past Medical History Past Medical History: CVA/TIA, Seizure Disorder Additional Past Medical History / Comment(s): MS History of Any Multi-Drug Resistant Organisms: None Reported Past Surgical History: Hysterectomy, Orthopedic Surgery Additional Past Surgical History / Comment(s): oral carpel tunnel. BACLOFEN PUMP IN ABDOMEN. Past Anesthesia/Blood Transfusion Reactions: No Reported Reaction Additional Past Anesthesia/Blood Transfusion Reaction / Comment(s): MOTHER NOTED WITH "VIOLENT NAUSEA AND VOMITING PRIOR TO SURGERIES. Past Psychological History: No Psychological Hx Reported Smoking Status: Never smoker Past Alcohol Use History: Unable to Obtain Past Drug Use History: Unable to Obtain - Past Family History Father Additional Family Medical History / Comment(s): Cardiac issue Mother Family Medical History: Hypertension General Exam Limitations: altered mental status General appearance: alert, anxious Head exam: Present: atraumatic, normocephalic, normal inspection Eye exam: Present: normal appearance, PERRL, EOMI. Absent: scleral icterus, conjunctival injection, periorbital swelling ENT exam: Present: normal exam, mucous membranes moist Neck exam: Present: normal inspection. Absent: tenderness, meningismus, lymphadenopathy Respiratory exam: Present: normal lung sounds bilaterally. Absent: respiratory distress, wheezes, rales, rhonchi, stridor Cardiovascular Exam: Present: normal rhythm, tachycardia, normal heart sounds. Absent: systolic murmur, diastolic murmur, rubs, gallop, clicks GI/Abdominal exam: Present: soft, normal bowel sounds. Absent: distended, tenderness, guarding, rebound, rigid Extremities exam: Present: normal inspection, full ROM, normal capillary refill. Absent: tenderness, pedal edema, joint swelling, calf tenderness Back exam: Present: normal inspection Neurological exam: Present: alert, oriented X3, CN II-XII intact Psychiatric exam: Present: normal affect, normal mood Skin exam: Present: warm, dry, intact, normal color. Absent: rash Course Vital Signs 10/08/22 10/08/22 10/08/22 03:50 04:07 06:53 Temperature 97.8 F Pulse Rate 104 H 104 H Respiratory 18 18 Rate Blood Pressure 140/104 119/91 O2 Sat by Pulse 96 98 Oximetry 10/08/22 07:40 Temperature Pulse Rate 98 Respiratory 18 Rate Blood Pressure 120/81 O2 Sat by Pulse 96 Oximetry Medical Decision Making - Medical Decision Making The patient was placed into room 5. Thorough history and physical exam was performed. Patient does answer questions appropriate however remains delayed in answering. IV is established laboratory studies were conducted. She was monitored in the emergency room without further seizure activity. I discussed the diagnosis, differential and treatment options with the patient and her family. Patient and mother would prefer to follow up outpatient. I called and spoke with Dr. Islas who stated that the patient should receive 1 g of Keppra IV as a loading dose. She then will be started on Keppra 500 mg twice daily. Instructed to follow up with Dr. Banerjee for further medication adjustments and return for any new or worsening symptoms. Patient was discharged home in stable condition - Lab Data Result diagrams: 10/08/22 04:04 10/08/22 04:04 Lab Results 10/08/22 10/08/22 Range/Units 04:04 04:04 WBC 5.2 (3.8-10.6) k/uL RBC 4.62 (3.80-5.40) m/uL Hgb 14.6 (11.4-16.0) gm/dL Hct 42.1 (34.0-46.0) % MCV 91.2 (80.0-100.0) fL MCH 31.6 (25.0-35.0) pg MCHC 34.7 (31.0-37.0) g/dL RDW 12.4 (11.5-15.5) % Plt Count 306 (150-450) k/uL MPV 10.8 Neutrophils % 71 % Lymphocytes % 10 % Monocytes % 10 % Eosinophils % 4 % Basophils % 0 % Neutrophils # 3.7 (1.3-7.7) k/uL Lymphocytes # 0.5 L (1.0-4.8) k/uL Monocytes # 0.5 (0-1.0) k/uL Eosinophils # 0.2 (0-0.7) k/uL Basophils # 0.0 (0-0.2) k/uL Sodium 137 (137-145) mmol/L Potassium 4.1 (3.5-5.1) mmol/L Chloride 99 (98-107) mmol/L Carbon Dioxide 31 H (22-30) mmol/L Anion Gap 7 mmol/L BUN 17 (7-17) mg/dL Creatinine 0.59 (0.52-1.04) mg/dL Est GFR (CKD-EPI)AfAm >90 (>60 ml/min/1.73 sqM) Est GFR (CKD-EPI)NonAf >90 (>60 ml/min/1.73 sqM) Glucose 110 H (74-99) mg/dL Calcium 9.6 (8.4-10.2) mg/dL Magnesium 1.8 (1.6-2.3) mg/dL Total Bilirubin 0.4 (0.2-1.3) mg/dL AST 31 (14-36) U/L ALT 44 H (4-34) U/L Alkaline Phosphatase 119 (38-126) U/L Total Protein 6.5 (6.3-8.2) g/dL Albumin 4.3 (3.5-5.0) g/dL Prolactin 46.700 H (2.800-29.200) ng/mL - EKG Data EKG Comments: EKG interpreted by myself which since her to sinus tachycardia with a rate of 101. TX interval 168. QRS 75. QTC of 396. No acute ST segment elevations or depressions concerning for ischemic changes Disposition Clinical Impression: Generalized seizure Disposition: HOME SELF-CARE Condition: Stable Instructions (If sedation given, give patient instructions): Recurrent Seizures in Adults (ED) Additional Instructions: You will be started back on Keppra at this time. Start taking the medication tomorrow. Follow up with Dr. Banerjee for further management of your seizures and for medication adjustment. Return for any new or worsening symptoms Prescriptions: levETIRAcetam [Keppra] 500 mg PO Q12HR #60 tab Is patient prescribed a controlled substance at d/c from ED?: No Referrals: Bridger Gomes MD [Primary Care Provider] - 1-2 days Ana Banerjee MD [Medical Doctor] - 1-2 days Time of Disposition: 07:06
[2022-10-08] MEDS ORDERED: levETIRAcetam IV 1,000 MG in SALINE 1 100ML.BAG IVPB STA (06:55)
[2022-10-08 07:47] VITALS: BP 120/81; PULSE 98
== END 2022-10-08 07:57 | disposition home or self-care (01) ==
LOC: EC 03:43
DX: G40.309 Generalized idiopathic epilepsy and epileptic syndromes, not intractable, without status epilepticus (principal); G45.9 Transient cerebral ischemic attack, unspecified; Z91.09 Other allergy status, other than to drugs and biological substances; Z88.6 Allergy status to analgesic agent; Z88.5 Allergy status to narcotic agent; Z88.7 Allergy status to serum and vaccine
CPT/HCPCS: 99285; 96365; 36415; 93005; 80053; 83735; 85025; 84146; J1953

== ENCOUNTER → 2022-12-11 | Outpatient (CLI) | payer OTHER ==
--- NOTE | 2022-12-11 15:02 | US ---
LOWER EXTREMITY VENOUS INSUFFICIENCY CLINICAL HISTORY: L89.619 PRESSURE , I73.9 PERIPHERAL VASCULAR DISEASE, UNSPEC. SIDE PERFORMED: Right 1) Color flow is present and patency is documented in the following vessels. No DVT or SVT is noted . Common Femoral Vein Deep Femoral Vein Femoral Vein Popliteal Vein Proximal Calf Veins-not seen, patient unable to well abduct leg, not seen Greater Saph Vein Upper Small Saph Vein 2) There is venous reflux noted at the following venous levels: none IMPRESSION: 1. No evidence for venous insufficiency. 2. Nonvisualization of proximal calf vein.
--- NOTE | 2022-12-11 15:17 | US ---
EXAMINATION TYPE: US arterial LE single level DATE OF EXAM: 12/11/2022 2:51 PM CLINICAL HISTORY: L89.619 PRESSURE , I73.9 PERIPHERAL VASCULAR DISEASE, UNSPEC. Nonhealing wound righ t heel 3-4 weeks. History of: Smoker: Previous Hypertension: Yes Diabetic: No Hyperlipidemia: No TIA/CVA: No Doppler Waveforms: Right: Monophasic multiphasic Left: Monophasic to biphasic Pulse Volume Recording: Pressure Gradients: Right Brachial Pressure: 114 Left Brachial Pressure: 119 Ankle-Brachial Indices: Right: 1.19 Left: 1.19 Toe Brachial Indices: Right: 0.75 Left: 0.77 IMPRESSION: Normal MARKO and TBI values bilaterally.
== END | disposition home or self-care (01) ==
LOC: RADUSWWP 13:25
PROVIDERS: ATTEND Podiatrist
DX: I73.9 Peripheral vascular disease, unspecified (principal); L89.613 Pressure ulcer of right heel, stage 3; I10 Essential (primary) hypertension; G35 Multiple sclerosis
CPT/HCPCS: 93922

== ENCOUNTER → 2023-05-29 | Outpatient (CLI) | payer OTHER ==
--- NOTE | 2023-05-29 14:33 | CT ---
EXAMINATION TYPE: CT urogram wo/w con CT DLP: 1712.6 mGycm, Automated exposure control for dose reduction was used. DATE OF EXAM: 05/29/2023 2:21 PM COMPARISON: None CLINICAL INDICATION:Female, 52 years old with history of D41.02, R31.0 hematuria; PHH, flank pain, he maturia TECHNIQUE: Urogram of the abdomen and pelvis was performed before and after the administration of 100 cc of IV c ontrast Isovue 300 contrast. Delayed imaging was performed. Coronal and sagittal reformats were perfo rmed. One or more CT dose reduction strategies were utilized during this examination. 2D and 3D recon structions are performed to assist visualization of the urinary tract on a separate workstation. FINDINGS: GENITOURINARY: RIGHT KIDNEY AND URETER: No calculi. No hydronephrosis or hydroureter. No renal mass or other lesions . No urothelial lesions: no filling defect, dilation, stricture or wall thickening. LEFT KIDNEY AND URETER: No calculi. No hydronephrosis or hydroureter. No solid enhancing lesion. Ther e are couple subcentimeter cortical cysts identified. No urothelial lesions: no filling defect, dilat ion, stricture or wall thickening. URINARY BLADDER: Not optimally distended. No gross evidence of calculi, mass or other lesions. REPRODUCTIVE: Post hysterectomy. ABDOMEN LIVER: Left hepatic dome cyst measuring up to 1.3 cm. GALLBLADDER AND BILE DUCTS: Unremarkable PANCREAS: Unremarkable. SPLEEN: Unremarkable. ADRENAL GLANDS: Unremarkable. STOMACH AND BOWEL: Large hiatal hernia containing approximately 50% of the stomach intrathoracic. No evidence of bowel obstruction. PERITONEUM/RETROPERITONEUM: No evidence of pneumoperitoneum, free fluid, or adenopathy. Left periaor tic retroperitoneal cystic lesion measuring 7.4 x 4.2 cm (series 5, image 39). This encases a left in ferior pole renal artery. The left ureter abuts this lesion without invasion identified. No solid enh ancing component identified. This demonstrates thin monet is nonaggressive appearing. VASCULATURE: No aortic aneurysm. Few pelvic phlebolith. MUSCULOSKELETAL: No acute osseous abnormalities. Neuro stimulator lead identified terminating at the superior endplate of T11 vertebral body. SOFT TISSUE/ABDOMINAL WALL: Left anterior abdominal wall neurostimulator device identified. LOWER CHEST: No significant findings. IMPRESSION: 1. No CT evidence of concerning urolithiasis or renal/urothelial neoplasm. 2. Left retroperitoneal 7.4 x 4.2 cm cystic lesion favored represent a cystic lymphangioma. No solid enhancing component identified. Consider follow-up examination in 6-12 months to assess for stability . 3. Large hiatal hernia.
== END | disposition home or self-care (01) ==
LOC: RADCTMAIN 12:53
PROVIDERS: ATTEND Urology
DX: D41.02 Neoplasm of uncertain behavior of left kidney (principal); R31.0 Gross hematuria; D18.1 Lymphangioma, any site; K44.9 Diaphragmatic hernia without obstruction or gangrene; N28.89 Other specified disorders of kidney and ureter
CPT/HCPCS: 74178; 74400; Q9967

== ENCOUNTER → 2023-09-26 | Outpatient (CLI) | payer OTHER ==
--- NOTE | 2023-09-26 14:36 | XR ---
EXAMINATION TYPE: XR foot complete RT DATE OF EXAM: 09/26/2023 COMPARISON: NONE HISTORY: Pain TECHNIQUE: Three views are submitted. FINDINGS: The osseous structures are intact. There is no acute fracture or dislocation. Mild hypertrophic ar thropathy with mild hallux pelvis deformity first digit. No destructive changes seen. There is diffus e soft tissue edema. Soft tissue ulceration noted by history appears to be adjacent to the distal margin first digit media lly. IMPRESSION: 1. No diagnostic evidence of osteomyelitis.
[2023-09-26 15:34] LABS: Basophils # (A) 0.01 X 10*3/uL (0.00-0.10); Basophils % (A) 0.3 %; Eosinophils # (A) 0.14 X 10*3/uL (0.04-0.35); Eosinophils % (A) 3.6 %; HCT 42.7 % (37.2-46.3); HGB 13.8 g/dL (12.0-15.0); Lymphocytes # (A) 0.28 X 10*3/uL (0.90-5.00); Lymphocytes % (A) 7.2 %; MCH 30.6 pg (27.0-32.0); MCHC 32.3 g/dL (32.0-37.0); MCV 94.7 FL (80.0-97.0); Mean Platelet Volume 12.9 FL (9.5-12.2); Monocytes # (A) 0.43 X 10*3/uL (0.20-1.00); NRBC Per 100 WBC 0 X 10*3/uL (0.00-0.01); Neutrophils # (A) 3.04 X 10*3/uL (1.80-7.70); Neutrophils % (A) 77.6 %; Platelet Count 270 X 10*3/uL (140-440); RBC 4.51 X 10*6/uL (4.10-5.20); RDW 12.4 % (11.5-14.5); WBC 3.91 X 10*3/uL (4.50-10.00)
[2023-09-26 16:31] LABS: ALT 28 U/L (8-44); AST 24 U/L (13-35); Albumin 4.3 g/dL (3.8-4.9); Albumin/Globulin Ratio 2.15 Ratio (1.60-3.17); Alkaline Phosphatase 104 U/L (41-126); Blood Urea Nitrogen 12.9 mg/dL (9.0-27.0); Calcium 10.2 mg/dL (8.7-10.3); Carbon Dioxide 31.7 mmol/L (21.6-31.8); Chloride 100 mmol/L (96-109); Glucose 83 mg/dL (70-110); Potassium 4.8 mmol/L (3.5-5.5); Sodium 142 mmol/L (135-145); Total Bilirubin 0.2 mg/dL (0.3-1.2); Total Protein 6.3 g/dL (6.2-8.2)
[2023-09-26 19:10] LABS: Prealbumin 25.5 mg/dL (18.0-42.0)
== END | disposition home or self-care (01) ==
LOC: LABWHC1 10:33
PROVIDERS: ATTEND Podiatrist
DX: G35 Multiple sclerosis (principal); L97.512 Non-pressure chronic ulcer of other part of right foot with fat layer exposed
CPT/HCPCS: 36415; 80053; 84134; 85025

== ENCOUNTER → 2023-10-06 | Outpatient (CLI) | payer OTHER ==
[2023-10-06 16:42] LABS: African American GFR (CKD) >90 (>60 ml/min/1.73 sqM); Blood Urea Nitrogen 11 mg/dL (7-17); Non-African American GFR(CKD) >90 (>60 ml/min/1.73 sqM)
--- NOTE | 2023-10-06 19:20 | CT ---
EXAMINATION TYPE: CT abdomen wo/w con CT DLP: 912.3 mGycm, Automated exposure control for dose reduction was used. DATE OF EXAM: 10/06/2023 5:26 PM COMPARISON: CT abdomen pelvis most recent from 05/29/2023. CLINICAL INDICATION:Female, 53 years old with history of D41.02 NEOPLASM OF UNCERTAIN BEHAVIOR OF LEF T KIDN; Left side and flank pain x several months. History of MS. TECHNIQUE: Axial CT of the ;CT abdomen wo/w con;Sagittal and coronal reformats were created on a [employer] workstation. Contrast used:100 cc mL of Isovue 300 without and with IV Contrast, (none if empty) Oral contrast used: with Oral Contrast (none if empty) FINDINGS: LOWER CHEST: Large hiatal hernia ABDOMEN LIVER: Unremarkable GALLBLADDER AND BILE DUCTS: Unremarkable. PANCREAS: Unremarkable. SPLEEN: Unremarkable. ADRENAL GLANDS: Unremarkable. KIDNEYS AND URETERS: No evidence of hydronephrosis or renal calculus. The ureters are unremarkable. Subcentimeter left probable renal cysts. PELVIS BLADDER: Unremarkable REPRODUCTIVE: Unremarkable. ABDOMEN & PELVIS STOMACH AND BOWEL: No evidence of bowel obstruction. PERITONEUM/RETROPERITONEUM: No evidence of pneumoperitoneum or free fluid. Indeterminate left flank s oft tissue measuring 7.4 x 3.4 x 7.4 cm. This lesion displaces the left ureter laterally posteriorly as seen on prior urogram. VASCULATURE: No evidence of aortic aneurysm. MUSCULOSKELETAL: No acute osseous abnormalities LYMPH NODES: No gross evidence for lymphadenopathy. SOFT TISSUE/ABDOMINAL WALL: Stimulator device projects over the anterior low abdomen. IMPRESSION: 1. Similar Large left retroperitoneal lesion of indeterminate etiology. This is separate from the ki dney and possibly relating to a fluid collection such as a seroma, cystic lymphangioma or lymphocele vs. other. Findings similar to 05/29/2023 for size. 2. No evidence for acute process. 3. Large hiatal hernia.
== END | disposition home or self-care (01) ==
LOC: RADCTMAIN 15:22
PROVIDERS: ATTEND Urology
DX: D41.02 Neoplasm of uncertain behavior of left kidney (principal); K44.9 Diaphragmatic hernia without obstruction or gangrene
CPT/HCPCS: 82565; 84520; 74170; 36415; Q9967

== ENCOUNTER → 2024-03-15 | Outpatient (CLI) | payer OTHER ==
[2024-03-15 14:48] LABS: African American GFR (CKD) >90 (>60 ml/min/1.73 sqM); Blood Urea Nitrogen 11 mg/dL (7-17); Non-African American GFR(CKD) >90 (>60 ml/min/1.73 sqM)
--- NOTE | 2024-03-15 17:53 | CT ---
EXAMINATION TYPE: CT abdomen wo/w con CT DLP: 812.20 mGycm, Automated exposure control for dose reduction was used. 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 Contrast used:100 mL of Isovue 300 with IV Contrast, (none if empty) Oral contrast used: with Oral Contrast (none if empty) FINDINGS: LOWER CHEST: Unremarkable ABDOMEN LIVER: Unremarkable GALLBLADDER AND BILE DUCTS: Unremarkable. PANCREAS: Unremarkable. SPLEEN: Unremarkable. ADRENAL GLANDS: Unremarkable. KIDNEYS AND URETERS: No evidence of hydronephrosis or renal calculus. The ureters are unremarkable. STOMACH AND BOWEL: Large hiatal hernia reidentified. Stomach and duodenum are otherwise unremarkabl e. No evidence of bowel obstruction. PERITONEUM/RETROPERITONEUM: Fluid density left retroperitoneal mass size compared to previous study. The lesion is oblong ovoid in shape the long axis measurement is 7.5 cm and the short axis measuremen t is 3 cm. In the coronal plane, the lesion 6.5 cm. The substance contained within the lesion has [place] unit readings from -20 to +20 suggesting fluid, possibly seroma or lymphocele. Aspiration or ultrasound-guided biopsy could determine the nature of the lesion. IMPRESSION: 1. Stable size and appearance of retroperitoneal "cyst". Aspiration or ultrasound-guided biopsy c ould determine the nature of the lesion.
== END | disposition home or self-care (01) ==
LOC: RADCTMAIN 13:20
PROVIDERS: ATTEND Urology
DX: D41.02 Neoplasm of uncertain behavior of left kidney (principal); K68.9 Other disorders of retroperitoneum
CPT/HCPCS: 82565; 84520; 74170; 36415; Q9967

== ENCOUNTER → 2025-03-01 | Outpatient (CLI) | payer OTHER ==
--- NOTE | 2025-03-01 09:50 | XR ---
EXAMINATION TYPE: XR abdomen 1V DATE OF EXAM: 03/01/2025 COMPARISON: CT abdomen 03/15/2024, 10/06/2023, CT urogram 05/29/2023 HISTORY: Abdominal pain TECHNIQUE: Single supine abdominal radiograph is obtained. FINDINGS: Small bowel demonstrates no evidence for dilatation or air fluid levels. Gas and fecal material is seen in non-distended colon. No convincing evidence for pneumoperitoneum. Pelvic phleboliths. The lung bases are clear. The osseous structures are intact. Left lower abdominal pump device with radiopaque portion of the catheter in the region of the L3 vert ebral body. IMPRESSION: Overall nonobstructive bowel gas pattern. [facility], , 03/01/2025 9:47 AM
== END | disposition home or self-care (01) ==
LOC: RADXRMAIN 09:14
PROVIDERS: ATTEND Psychiatry & Neurology Neurology
DX: R10.9 Unspecified abdominal pain (principal); Z97.8 Presence of other specified devices
CPT/HCPCS: 74018

== ENCOUNTER → 2025-04-20 | Outpatient (CLI) | payer MEDICARE ==
--- NOTE | 2025-04-20 14:32 | CT ---
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 CT DLP: [address] CTDI: mGy Automated exposure control for dose reduction was used. FINDINGS: The lung bases are clear. There is a large hiatal hernia with a partial intrathoracic stomach. There is a gallstone but no wall thickening, distention or pericholecystic fluid. There is no biliary ductal dilatation. There is no focal mass or organomegaly involving the liver, pancreas, spleen or adrenal glands. There is no solid renal mass or hydronephrosis. There is a retroperitoneal cyst adjacent to the left aspect of the aorta which is decreased in size i n the interval from 3.3 x 7.6 centimeters to now 6.0 x 2.1 cm. The caliber of the abdominal aorta is normal. There is no retroperitoneal hemorrhage. The bowel loops are normal in caliber. There is no free intraperitoneal air or fluid. Visualized osseous structures are intact. IMPRESSION: 1. Large hiatal hernia with partial intrathoracic stomach. 2. Decreasing retroperitoneal cyst as described above. 3. No new abnormalities seen. [facility], , 04/20/2025 2:29 PM
== END | disposition home or self-care (01) ==
LOC: RADCTMAIN 12:57
PROVIDERS: ATTEND Urology
DX: D41.02 Neoplasm of uncertain behavior of left kidney (principal); K44.9 Diaphragmatic hernia without obstruction or gangrene; K68.9 Other disorders of retroperitoneum
CPT/HCPCS: 74170; Q9967